=== PATIENT | male | born 1950 | race Hispanic/Latino ===

== ENCOUNTER 2021-08-02 09:04 | Inpatient (IN) | payer BC, MEDICARE ==
[~2021-08-02] VITALS: Ht 177.8 cm; Wt 89.0 kg
[2021-08-02] MEDS ORDERED: COSOPT EYE DROP10 ML OU (09:30)
[2021-08-02] MEDS ORDERED: LEVOTHYROXINE100 MCG PO (09:31)
[2021-08-02] MEDS ORDERED: LISINOPRIL-HCT1 EAC2 PO (09:31)
[2021-08-02] MEDS ORDERED: FEROSUL325 MG PO (09:32)
[2021-08-02] MEDS ORDERED: PRAVASTATIN SOD80 MG PO (09:32)
--- NOTE | 2021-08-02 15:00 | NUR ---
PT ARRIVED FROM ER. PT TRANSFERES SELF FROM ER STRETCHER TO RESTROOM TO VOID AND THEN TO BED. PT VOIDS 300ML CLEAR YELLOW URINE WITH OUT ISSUE. VITAL SIGNS STABLE. PT REPORTS 3-5/10 PAIN IN RIGHT ABDOMEN THAT IS WORSE WITH MOVEMENT OR PALPATION. PAIN IMPROVES WITH PT LYING ON RIGHT SIDE. SEE MAR FOR MEDICAITON GIVEN. ABDOMEN GUARDED, PT DOES NOT WANT ABDOMEN TOUCHED EVEN BY STETHESCOPE. PT OFFERED PROFESSIONAL TRANSATION SERVICES, PT DECLINES REQUESTING HIS DAUGHTER TRANSLATE OVER SERVICES. PT UNDERSTANDS MOST QUESTIONS AND ANSWERS ON HIS OWN. BOWEL TONES HEARD IN LEFT ABDOMEN, HYPO ACTIVE IN RIGHT ABDOMEN. HEAR TONES REGULAR, LUNG SOUNDS CLEAR. PT EDUCATION DONE REGARDING PLAN OF CARE AND NPO STATUS. PT VERBALIZES UNDERSTANDING AND STATES HIS QUESTIONS HAVE BEEN ANSWERED. PT TALKING WITH FAMILY ON PHONE. NO ADDITIONAL REQUESTS OR COMPLAINTS. PT DEMONSTRATES USE OF CALL LIGHT. BED RAILS UP. CALL LIGHT WITHIN REACH.
--- NOTE | 2021-08-02 15:50 | NUR ---
REPORT GIVEN TO GABBY ALONSO WHO IS ASSUMING CARE OF PT.
--- NOTE | 2021-08-02 16:00 | NUR ---
Pt resting safely in bed w/ call light in reach, pt denies any pain, nausea, or SOB. Pt asked for water pt educated on NPO status.
--- NOTE | 2021-08-02 18:15 | NUR ---
Pt resting safely in bed w/ call light in reach, denies any pain, nausea, or needs at this time
--- NOTE | 2021-08-02 18:15 | NUR ---
PATIENT IN BED RESTING AT THIS TIME. VITALS AND I&O'S CHARTED. BLOOD PRESSURE LOW, RN GAVIN NOTIFIED. CALL LIGHT IN REACH. NO FURTHER NEEDS AT THIS TIME,
--- NOTE | 2021-08-02 20:03 | NUR ---
RECEIVED REPORT FROM DAY SHIFT RN. PATIENT DENIES ANY NEEDS. CALL LIGHT IN REACH.
--- NOTE | 2021-08-02 21:20 | NUR ---
PATIENT ASSESMENT COMPLETED. PATIENT ONLY REPORTS PAIN WITH MOVEMENT. PATIENT DENIES THE NEED FOR PAIN MEDICAITON. PATIENT DENIES ANY NAUSEA. PATIENTS IV INFUSING PER ORDER. SCHEDULED MEDICATION GIVEN PER ORDER. VITALS TAKEN AND RECORDED. URINAL EMPTEID AND INTKAE AND OUTPUT RECORDED. NO NEEDS NOTED. UPDATED DAUGHTER ON PLAN OF CARE. ALL QUESTIONS ANSWERED. CALL LIGHT IN REACH.
--- NOTE | 2021-08-03 00:24 | NUR ---
PATIENT IS RESTING IN BED. URINAL EMPTIED. IV INFUSING PER ORDER. PATIENT DENIES ANY PAIN OR NAUSEA. PATIENTS CALL LIGHT IN REACH.
--- NOTE | 2021-08-03 02:45 | NUR ---
PATIENTS VITALS TAKEN AND RECORDED. INTAKE AND OUTPUT RECORDED. BS CHECK PER ORDER AND IS WNL. PATIENT REPORTS PAIN ONLY WITH MOVEMENT. PATIENT DENIES THE NEED FOR PAIN MEDICAITON AT THIS TIME. PATIENT DENIES ANY NAUSEA. PATIENT DENIES ANY FURTHER NEEDS. CALL LIGHT IN REACH.
--- NOTE | 2021-08-03 04:43 | NUR ---
PATIENT IS RESTING IN BED WITH MY EYES CLSOED, RR 17. CALL LIGHT IN REACH.
--- NOTE | 2021-08-03 05:51 | NUR ---
PATIENTS VITALS TAKEN AND RECORDED. URINAL EMPTIED. INTAKE AND OUTPUT RECORDED. PATIENTS BLOOD DRAWN AND SENT TO LAB. PATIENTS IV INFUSING PER ORDER. PATIENT FRED ANY NAUSEA. PATIENT REPORTS PAIN IN HIS ABD ONLY WITH MOVEMENT. PATIENT DENIES THE NEED FOR PAIN MEDICATION AT THIS TIME. NO FURTHER NEEDS NOTED. CALL LIGHT IN REACH.
--- NOTE | 2021-08-03 06:32 | NUR ---
NEW IV PLACED FOR pt COMFORT HIS AC IV BEEPS OFTEN. ZOSYN INFUSING PER ORDERS. NO REQUESTS AT THIS TIME. PRIMARY RN UPDATED
--- NOTE | 2021-08-03 07:21 | NUR ---
Shift report received from GABBY Rivas, pt resting in bed w/ call light in reach and eyes closed, RR even and unlabored on RA. IV fluids infusing per provider order
--- NOTE | 2021-08-03 09:30 | NUR ---
Pt resting in bed safely w/ call light in reach. Morning assesment complete, scheduled meds given, and IV fluids hung and infusing per provider order. Pt denies any pain, nausea, or needs at this time
[2021-08-03] MEDS ORDERED: TRAVOPROST2.5 ML OU (09:46)
[2021-08-03] MEDS ORDERED: METFORMIN HCL1000 MG PO (09:47)
--- NOTE | 2021-08-03 11:00 | NUR ---
Spoke with pt and daughter Mecca. Pt lives with his in a double wide trailer. 3 steps into home. Pt does not use any DME. is Catie Grissom. Mom will be able to assist pt as needed with driving to appts and household tasks. They deny financial issues. He states they do not qualify for assist from [employer]. They both agree at this pt does not have needs. Many questions answered about pts colonoscopy. They are also wanting to know if pt has to have a colectomy if he will have a colostomy bag. We did discuss if he has any needs, I will assist them with any supplies. We then discussed to wait and see what the colonoscopy shows and to discuss this with Dr. Calix. Of course, pt and daughter have many fears at this time. Encouraged them to discuss with Dr Garay or Dr. Calix.
--- NOTE | 2021-08-03 12:00 | NUR ---
Pt resting in bed safely w/ call light in reach pt denies any pain, nausea, or needs at this time. IV fluids infusing per provider order
--- NOTE | 2021-08-03 14:00 | NUR ---
Pt resting in bed w/ call light in reach. IV abx hung and infusing per provider order, running concurrently w/ IV fluids. Pt denies at pain, nausea or needs at this time
--- NOTE | 2021-08-03 14:20 | NUR ---
MED REC COMPLETE
--- NOTE | 2021-08-03 15:14 | NUR ---
PATIENT IN BED RESTING, DAUGHTER AT BEDSIDE. VITALS DONE BY [employer], I&O'S CHARTED BY THIS WEIGHT LOSS CONSULTANT. CALL LIGHT IN REACH. NO FURTHER NEEDS AT THIS TIME.
--- NOTE | 2021-08-03 16:00 | NUR ---
Pt resting in bed w/ call light in reach, pt reports he had a large loose BM, pt also has finished 1st bottle of bowel prep 2nd bottle given to pt. Pt denies any further needs at this time. Pt reports minimal pain in RUQ, but denies the need for pain medication.
--- NOTE | 2021-08-03 17:38 | NUR ---
PATIENT IN BED RESTING WITH EYES CLOSED. VITALS AND I&O'S CHARTED. CALL LIGHT IN REACH. NO FURTHER NEEDS AT THIS TIME,.
--- NOTE | 2021-08-03 19:54 | NUR ---
RECEIVED REPORT FROM DAY SHIFT RN. PATIENT IS RESTING IN BED WATCHING TV. NO NEEDS NOTED. CALL LIGHT IN REACH.
--- NOTE | 2021-08-03 20:19 | NUR ---
PATIENT IS RESTING IN BED. VITALS TAKEN AND RECORDED. INTAKE AND OUTPUT RECORDED. PATIENT HAD LOOSE BM, BROWN WITH SEDIMENT NOTED. FRESH ICE WATER PROVIDED. SCHEDULED MEDICATIONS GIVEN PER ORDER. PATIENT DENIES ANY PAIN OR NAUSEA. CALL LIGHT IN REACH. IV INFUSING PER ORDER.
--- NOTE | 2021-08-03 23:00 | NUR ---
WENT INTO THE ROOM. FLUSHED TOILET WITH BOWEL PREP AND URINE 400ML. PATIENT DENIES ANY NEEDS AT THIS TIME.
--- NOTE | 2021-08-04 00:31 | NUR ---
PATIENT VOIDED AND HAD BM. BM IS LIQUID, LIGHT BROWN AND SEDIMENT NOTED. CALL LIGHT IN REACH.
--- NOTE | 2021-08-04 02:32 | NUR ---
BS CHECKED PER ORDER AND IS WNL. PATIENT DENIES ANY NEEDS. CALL LIGHT IN REACH. PATIENT DENIES ANY PAIN.
--- NOTE | 2021-08-04 05:29 | NUR ---
PATIENTS VITALS TAKEN AND RECORDED. INTAKE AND OUTPUT RECORDED. PATIENTS SCHEDULED MEDICATON GIVEN PER ORDER. IV INFUSING PER ORDER. PATIENT REMAINS NPO AT THIS TIME. NO NEEDS NOTED. CALL LIGHT IN REACH.
--- NOTE | 2021-08-04 07:33 | NUR ---
Shift report received from GABBY Rivas, pt resting safely in w/ call light in reach and eyes closed, RR even and unlabored on RA.
--- NOTE | 2021-08-04 10:00 | NUR ---
Pt resting safely in bed w/ call light in reach. Morning assesment complete, scheduled meds given, and IV fluids hung and infusing per provider order. Pt denies and pain, nausea, or needs at this time. in room to discuss plan of care, surgical consent signed for EGD/colonoscopy, all questions and concerns answered, pt's daughter at beside.
--- NOTE | 2021-08-04 11:00 | NUR ---
Surgery crew here for pt, LR w/ straight tubing and extension hung, pre procedure checklist and anesthisa summary completed.
--- NOTE | 2021-08-04 11:48 | CONS ---
[facility] [address], [place] [address] Signed DATE OF CONSULTATION: 08/04/2021 CHIEF COMPLAINT: Right-sided abdominal pain. HISTORY OF PRESENT ILLNESS: Molina is a 71-year-old gentleman who worked for many years here in [facility] [employer] [facility]. He is now retired. Over the last three months, he has been having increasing pain in the right side of his abdomen. He tried metformin and was having diarrhea. When he stopped the metformin, the diarrhea seemed to improve. He was also found to be anemic with a hemoglobin below 10. He is apparently scheduled for an outpatient colonoscopy in August of this year. In the meantime, he has been on iron tablets. However, the pain in the last month seemed to getting worse, but certainly the last day or two it was worse. He came to our local emergency room for evaluation. He was evaluated in the emergency room and once again found to be anemic with a large mass and/or inflammatory process in his right proximal to mid colon. He has been admitted to Dr. Garay with consult to the medical service. Dr. Garay is now out of town and therefore asked me to take over the care. In the meantime, Molina feels a little better with IV fluids and his Zosyn. He did tolerate the bowel prep yesterday and therefore is awaiting his upper and lower endoscopy. His daughter has been at the bedside. PAST MEDICAL HISTORY: Hypertension, diabetes, hyperlipidemia, and hypothyroidism. PAST SURGICAL HISTORY: Includes a laparoscopic right inguinal hernia and bilateral knee replacements. SOCIAL HISTORY: He is to Catie at [phone]. They have three children and he also has four stepchildren. His daughter is Mecca at [phone]. He sees Madelin Helm at the [facility]. He is retired from [employer]. He still drives. He is a full code. We did not review his smoking and alcohol history. FAMILY HISTORY: There is no colon cancer or inflammatory bowel disease in the family. REVIEW OF SYSTEMS: He had 10 systems reviewed and is awaiting his colonoscopy in August of this year. ALLERGIES: Metformin may have caused diarrhea. MEDICATIONS: Electronically Signed By: NA TELLO MD 08/04/21 1148 PATIENT NAME: MOLINA CEE CONSULTATION DATE OF : 54 REPORT #: [id number] PHYSICIAN: NA TELLO MD PCP: MADELIN HELM REPORT IS CONFIDENTIAL AND NOT TO BE RELEASED WITHOUT AUTHORIZATION [facility] [address], [place] [address] Signed Dorzolamide/timolol eyedrops. Also, lisinopril/hydrochlorothiazide/levothyroxine 100 mcg p.o. daily, pravastatin, and iron. PHYSICAL EXAMINATION: VITAL SIGNS: His blood pressure is 103/58, heart rate is 62, respiratory rate is 17, temperature is 98.0. He is 98% on room air. He is 5 feet 10 inches, 89 kg. GENERAL: Molina is a 71-year-old gentleman, who is lying supine in his hospital bed. His daughter, Mecca is in the room along with our nurse. He does not appear systemically ill or toxic. He is alert, awake, and interactive. LUNGS: Clear to auscultation bilaterally. HEART: Actually bradycardic. ABDOMEN: Soft and flat. I do feel a sense of fullness in his right mid quadrant. Very minimal tenderness. LABORATORY DATA: His white blood count was initially 17.5, it is down to 9.6. His hemoglobin was 9.7, it is down to 8.6. His mean cell volume was 68, it is now 67. His platelet count was a little up at 425, it is down to 321. His sodium was 132, the BUN was 16, creatinine 0.85, glucose 153. His liver function test had been negative. His albumin was a little low at 2.4. His COVID was positive, although, he has no symptoms and of course the CEA level is pending. His prealbumin is slightly low at 12.1. RADIOGRAPHIC STUDIES: The CT scan of abdomen, pelvis and his chest is reviewed. The chest is essentially unremarkable. In the proximal to mid right colon, he has a thickened inflamed mass with a loop of small bowel over that area. He has sigmoid diverticulosis without inflammatory changes. The appendix appears unremarkable. ASSESSMENT AND PLAN: Molina is a 71-year-old gentleman, who presents with a right inflamed colonic mass. Overall, he is better with IV fluids and his antibiotics. He has been able to tolerate his bowel prep. He has certainly been anemic for a while. I suspect it is from this mass in the colon. Nevertheless, his daughter had asked me about the upper endoscopy in addition to the colonoscopy. That certainly is reasonable as he could have peptic ulcer disease or gastritis and so forth. He certainly could have two separate processes going on related to anemia. I have reviewed upper and lower endoscopy with them in detail. They understand there is risk including, but not limited to gas bloating, crampy abdominal pain, bleeding, perforation requiring surgery, and missed diagnosis. Also given his current situation and his anemia, we thought it was best to have an anesthesia provider help us with increased monitoring and sedation with propofol. In the end, he is going to need a right colectomy and that surgery is going to take several hours. We will see if we can get that done in the days ahead. They have expressed understanding and agreed with the above plan. Electronically Signed By: NA TELLO MD 08/04/21 1148 PATIENT NAME: MOLINA CEE CONSULTATION DATE OF : 54 REPORT #: [id number] PHYSICIAN: NA TELLO MD PCP: MADELIN HELM REPORT IS CONFIDENTIAL AND NOT TO BE RELEASED WITHOUT AUTHORIZATION [address] [address] Signed Na Tello MD ALB/MODL /[id number] cc: Dr. Madelin Tello MD Copies: NA TELLO MD ~ Electronically Signed By: NA TELLO MD 08/04/21 1148 PATIENT NAME: MOLINA CEE CONSULTATION DATE OF : 54 REPORT #: [id number] PHYSICIAN: NA TELLO MD PCP: MADELIN HELM REPORT IS CONFIDENTIAL AND NOT TO BE RELEASED WITHOUT AUTHORIZATION
--- NOTE | 2021-08-04 11:50 | NUR ---
No needs. States he is hungry.
--- NOTE | 2021-08-04 11:51 | NUR ---
08/04/21 1151 Mary Beth Sheikh 1143-PATIENT ARRIVED TO RECOVERY NONAROUSABLE LAYING LEFT LATERAL ABDOMEN SOFT. IVF INFUSING. 4L NC RR EVEN. SB HR 50'S
--- NOTE | 2021-08-04 12:28 | NUR ---
PT RETURNS FROM UPPER AND LOWER SCOPES, PT ABLE TO TRANSFER SELF FROM STRETCHER TO BED, RESTING SAFELY W/ CALL LIGHT IN REACH. VSS ON RA, IV FLUIDS INFUSING PER PROVIDER ORDER. PT DENIES ANY PAIN OR NAUSEA, ONLY STATES HE IS THIRSTY, PT GIVEN GLASS OF ICE WATER HE IS ALLWOED CLEAR LIQUIDS. DAUGHTER AT BEDSIDE
--- NOTE | 2021-08-04 12:52 | OR ---
[facility] [address], [place] [address] Signed DATE OF OPERATION: 08/04/2021 SURGEON: Na Tello MD PREOPERATIVE DIAGNOSES: 1. Right colonic mass with inflammation. 2. Anemia. POSTOPERATIVE DIAGNOSES: 1. Mild diffuse gastritis. 2. Large right colonic mass, nearly obstructing. 3. 4 mm and 7 mm polyps proximal transverse colon (snare). 4. 4 mm polyp at 10 cm/rectum. 5. Minimal to moderate transverse colon and left colon diverticulosis. 6. Minimal internal hemorrhoids. PROCEDURES: 1. EGD with CLOtest and biopsy of the antrum. 2. Colonoscopy with snare polypectomy and hot biopsy. ESTIMATED BLOOD LOSS: None. INDICATIONS: Emily is a 71-year-old gentleman, who I was asked to take over his care earlier today by our local surgeon Dr. Branden Garay. Emily has trouble probably three months with right-sided abdominal pain. He was noted to be anemic. He had been to his primary care provider. He was scheduled to have an outpatient colonoscopy in August of this year. He had been put on metformin for his diabetes. He developed diarrhea. He stopped the metformin, it seemed like the diarrhea resolved. However, over the last month and particularly over the last couple of days, the right-sided abdominal pain became worse. He came to our local emergency room for evaluation. His white count was elevated and he had a palpable mass in the right side of his abdomen. Liver function tests were negative. CEA is pending. Albumin is a little low at 2.4. He is anemic with a hemoglobin of 9.7 and mean cell volume of 68. The CT scan of the chest was unremarkable. The CT scan of the abdomen and pelvis showed there is thickened inflamed mass in his proximal mid right colon. There is a loop of small bowel there as well. The appendix is uninvolved. He could have diverticulosis on the left side without any inflammatory changes. He has already had a long discussion with Dr. Garay and including myself. His daughter has been present for those discussions. We reviewed Electronically Signed By: NA TELLO MD 08/04/21 1252 PATIENT NAME: EMILY CEE OPERATIVE REPORT DATE OF : 54 REPORT #: [id number] PHYSICIAN: NA TELLO MD PCP: MADELIN HELM REPORT IS CONFIDENTIAL AND NOT TO BE RELEASED WITHOUT AUTHORIZATION [facility] [address], [place] [address] Signed both upper and lower endoscopy in detail. He has never had a previous endoscopy. There is no family history of colon cancer, polyps or inflammatory bowel disease. He understands there is risk including, but not limited to gas bloating, crampy abdominal pain, bleeding, perforation requiring surgery, and missed diagnosis. Also because of his acute situation, his anemia is , we did ask an anesthesia provider to help us with increased monitoring and sedation with propofol. They had expressed understanding and wished to proceed. PROCEDURE NOTE: Emily was taken into our endoscopy suite and placed in a supine semi-recumbent position. The adult gastroscope was introduced and advanced under direct visualization of the camera. A bite block was utilized for the case. The duodenum and pyloric channel were unremarkable. The stomach showed very minimal inflammatory changes. We took a biopsy of the antrum for pathologic review as well as CLOtest. Upon retroflexion of the scope, we really could not appreciate any additional pathology. Certainly, no obvious hiatal hernia. The scope was withdrawn up through the area of the GE junction, which was compiled without stricture. The Z-line remains intact. There was no Hong's mucosa. No gastric or esophageal varices. The distal middle and upper esophagus were unremarkable. After this, the gas was suctioned out and the gastroscope removed. Emily tolerated the procedure quite well. Emily was rotated into the left lateral decubitus position. He was maintained on IV sedation with propofol per our nurse instructional technology instructor. A digital rectal exam was performed and he had good sphincter tone. Not much really in the way of external hemorrhoids. The prostate is moderately enlarged and indurated consistent with his age. The adult colonoscope was introduced and advanced under direct visualization of the camera. We came around the hepatic flexure and down into the mid proximal right colon, he has a nearly obstructing colonic mass. We could not pass the scope past the mass. Knowing he is to undergo his right colectomy and this is an obvious tumor, we did not take any biopsies of this mass. The scope was then slowly withdrawn. He does have diverticula throughout most of his colon. They were moderate in size, few in number, and scattered about. We used the snare and the hot biopsy forceps to remove the polyps in the proximal transverse colon. In the rectum, he had a tiny polyp at 10 cm removed with the hot biopsy forceps. Upon retroflexion of the scope, he really has minimal internal hemorrhoid tissue. After this, the gas was suctioned out and colonoscope removed. Emily tolerated the procedure quite well. RECOMMENDATIONS: Emily will be returned to his hospital bed today on clear liquid diet. We will discuss this in more detail with his daughter and Emily as well. He will need a right colectomy probably tomorrow or the next day. Electronically Signed By: NA TELLO MD 08/04/21 1252 PATIENT NAME: EMILY CEE OPERATIVE REPORT DATE OF : 54 REPORT #: [id number] PHYSICIAN: NA TELLO MD PCP: MADELIN HELM REPORT IS CONFIDENTIAL AND NOT TO BE RELEASED WITHOUT AUTHORIZATION [facility] [address] [place] [id number] Signed Na Tello MD [facility]/MODL /[id number] cc: Dr. Madelin Tello MD Copies: NA TELLO MD ~ Electronically Signed By: NA TELLO MD 08/04/21 1252 PATIENT NAME: EMILY CEE OPERATIVE REPORT DATE OF : 54 REPORT #: [id number] PHYSICIAN: NA TELLO MD PCP: MADELIN HELM REPORT IS CONFIDENTIAL AND NOT TO BE RELEASED WITHOUT AUTHORIZATION
--- NOTE | 2021-08-04 14:00 | NUR ---
Pt resting in bed safely w/ call light in reach, daughter at bedside. 1st unit of PRBC started, no reaction after initial 15 min infusion. VSS on RA. Pt and daughter educated on s/sx of blood transfusion reactions. No further needs at this time, will continue to monitor transfusion.
--- NOTE | 2021-08-04 16:00 | NUR ---
Infusion of 1st unit of PRBC complete, VSS on RA, no reaction. Infusion for 2nd of PRBC started, no reaction in initial 15 min infusion, VSS on RA, pt denies any pain or needs at this time, resting safely in bed w/ call light in reach and daughter at bedside.
--- NOTE | 2021-08-04 18:00 | NUR ---
Infusion of 2nd unit of PRBC complete, VS remain stable on RA, pt denies ant pain or needs at this time. No s/sx of reaction obsereved/reported, will continue to monitor.
--- NOTE | 2021-08-04 19:25 | NUR ---
REPORT FROM GAVIN - ERNIE DENIES NEEDS.
--- NOTE | 2021-08-04 21:30 | NUR ---
IN PT ROOM, BROTH PROVIDED - DENIES PAIN, ASSESSMENT COMPLETE - VOID 500 ML URINE, IV ABX STARTED. BS TAKEN. PT CALL LIGHT IN REACH.
--- NOTE | 2021-08-04 23:16 | NUR ---
CHARTED PT. IS AND OS AND VITALS. TIDIED ROOM, EMPTIED GARBAGE. CALL LIGHT LEFT WITHIN REACH. NO OTHER IMMEDIATE NEEDS AT THIS TIME. FRESH WATER PROVIDED.
--- NOTE | 2021-08-05 01:30 | NUR ---
ENTERED PT ROOM FOR CALL LIGHT ALARM ON IV, PT REPOSITIONED TO R SIDE, NPO FOR POSSIBLE PROCEDURE. CALL LIGHT IN REACH.
--- NOTE | 2021-08-05 04:12 | NUR ---
re check of bs after low at 2 am was 111 after cup of apple juice. labs drawn by yo BUSH - sent to lab.
--- NOTE | 2021-08-05 09:57 | NUR ---
PT SALINE LOCKED. UP TO SHOWER AT THIS TIME. BED MADE UP WITH CLEAN LINENS. FAMILY AT BED SIDE.
--- NOTE | 2021-08-05 10:00 | NUR ---
Patient resting in bed, a&ox4. Patient requesting to shower, windshield repair technician to assist here shortly. Patient denies pain. Daughter at bedside visiting. No current needs. Personal supplies and call light within reach.
--- NOTE | 2021-08-05 10:12 | NUR ---
PT UP TO CHAIR WITH FAMILY MEMBER IN ROOM. NO FURTHER NEEDS AT THIS TIME.
--- NOTE | 2021-08-05 13:00 | NUR ---
Spoke with Mecca. Pt resting in bed. Hungry. She has questions if pt will have surgery today or tomorrow. Let her know, she would need to discuss with Dr. Calix.
--- NOTE | 2021-08-05 15:04 | NUR ---
Patient resting in bed, no distress. Patient denies pain. No current needs at this time. Personal supplies and call light within reach.
--- NOTE | 2021-08-05 16:44 | NUR ---
Patient awake watching tv, no distress. Patient condtinues to deny pain. Daughter remains at bedside. No current needs. Personal supplies and call light within reach.
--- NOTE | 2021-08-05 18:34 | EKG ---
[facility] [address] [facility] [place], [place] [address] Signed Sinus bradycardia Otherwise normal ECG No previous ECGs available Confirmed by ELIA ZAFAR DO ([id number]) on 08/05/2021 6:34:08 PM Electronically Signed By: ELIA ZAFAR DO 08/05/21 1834 PATIENT NAME: MEÑO CEEDELMY RIVERA Electrocardiogram DATE OF : 54 PHYSICIAN: ELIA ZAFAR DO REPORT #: [id number] REPORT IS CONFIDENTIAL AND NOT TO BE RELEASED WITHOUT AUTHORIZATION
--- NOTE | 2021-08-05 22:55 | NUR ---
PT AWAKE, ALERT, ORIENTED, NO C/O PAIN OR N/V. ON ROOM AIR, TELE#[address] LUNGS CLEAR BILAT, NO COUGH, NO SOB. IVF INFUSING RA, SL LFA PATENT. PT AWARE OF NPO STATUS AFTER MIDNIGHT, STATED UNDERSTANDING. INDEPENDENT IN ROOM. VOIDING QS. USES CALL LIGHT, ON RESPIRATORY ISOLATION
--- NOTE | 2021-08-06 | NUR ---
PT IS NOW NPO STATUS, ORAL SWABS PROVIDED AT BEDSIDE, URINAL EMPTIED
--- NOTE | 2021-08-06 00:27 | NUR ---
NPO AT THIS TIME, ORAL SPONGES GIVEN AND EXPLAINED TO PT.
--- NOTE | 2021-08-06 01:23 | NUR ---
RESTING, ON ROOM AIR, EYES CLOSED, NO C/O PAIN OR N/V. IVF INFUSING , NO C/O ADVERSE REACTION TO IV ABX. NPO, ORAL SPONGES AND CALL LIGHT AT BEDSIDE, VOIDING QS
--- NOTE | 2021-08-06 02:10 | NUR ---
Q6 GLUC CHECK (SEE EMAR), NURSE INFORMED
--- NOTE | 2021-08-06 02:36 | NUR ---
awakes easily, NPO, CG 79, oj with 2 pakets of sugar given. no s/sx hypoglycemia, pt is NPO for am procedure. uses call light, voiding QS yellow urine. IVF infusing w/o problems
--- NOTE | 2021-08-06 05:05 | NUR ---
PT ON RESPIRATORY ISOLATION PRECAUTIONS. ON ROOM AIR, CPOX#5, SATS 96%, NO SOB WHEN UP TO BR, INSP WHEEZING ON L SIDED NOTED. NPO , CBG 79 GOT OJ, NO S/SX OF HYPOGLYCEMIA, IVF INFUSING, NO ADVERSE REACTION TO ABX. HEXADINE WIPE DOWN COMPLETED. COOPERATIVE
--- NOTE | 2021-08-06 07:47 | NUR ---
Patient awake, a&ox4. Patient denies pain at this time. IV site patent, fluids infusing per provider order. Surgical consent signed with patient at this time. Patient updated with plan of care for surgery this morning. No current needs. Personal supplies and call light within reach.
--- NOTE | 2021-08-06 11:06 | NUR ---
PT IN SURGERY, WILL FOLLOW
--- NOTE | 2021-08-06 13:11 | PATH ---
[facility] [address], [place] [address] Signed THIS IS AN ADDENDUM REPORT SPECIMEN(S): A ANTRUM/PYLORUS BIOPSY SPECIMEN(S): B PROXIMAL TRANSVERSE COLON POLYP SPECIMEN(S): C RECTAL POLYP AT 10 CM SPECIMEN SOURCE: A. ANTRUM/PYLORUS BIOPSY B. PROXIMAL TRANSVERSE COLON POLYP C. RECTAL POLYP AT 10 CM CLINICAL HISTORY: Anemia, right colonic mass, colitis. Post: Colon polyp/rectal polyp, mild gastritis, diverticulitis, proximal mid right colon mass at 130 cm. FINAL PATHOLOGIC DIAGNOSIS: A. Antrum/pylorus, biopsy: - Gastric antral mucosa with chronic inactive gastritis. - Negative for Helicobacter pylori with HE stains, see comment. B. Colon, proximal transverse, polypectomy: - Fragments of necrotic tissue and inflammatory debris, see comment. C. Rectum, 10 cm, polypectomy: - Hyperplastic polyp. COMMENT: A. An immunohistochemical stain for Helicobacter pylori has been ordered and will be reported in an addendum. B. The endoscopic impression of an unbiopsied colonic mass in the mid proximal right colon is noted. The fragments of tissue in the current case may represent exfoliated necrotic tissue from this mass, though no viable tumor is present for diagnosis. BRP:cml:C2NR MICROSCOPIC EXAMINATION: Histologic sections of all submitted blocks are examined by light microscopy. These findings, together with the gross examination, support the pathologic diagnosis. GROSS DESCRIPTION: Three specimens are received in three containers, labeled "SM." A. The specimen, labeled "SM, antrum biopsy," is received in formalin and PATIENT NAME: EMILY CEE PATHOLOGY DATE OF : 54 REPORT #: [id number] PHYSICIAN: LETHA SCOTT PCP: KENDRA HELM REPORT IS CONFIDENTIAL AND NOT TO BE RELEASED WITHOUT AUTHORIZATION [facility] [address] [id number] Signed consists of one gaitan soft tissue fragment that measures 0.3 cm in greatest dimension. The specimen is entirely submitted in cassette (A1). B. The specimen, labeled "SM, proximal transverse colon polyp," is received in formalin and consists of multiple gaitan soft tissue fragments that measure 1.5 x 1.7 x 0.3 cm in aggregate. The biggest tissue fragment is inked and sectioned. The specimen is entirely submitted in cassette (B1). C. The specimen, labeled "SM, rectal polyp at 10 cm," is received in formalin and consists of two gaitan soft tissue fragments that measure 0.1 cm in greatest dimension. The specimen is entirely submitted in cassette (C1). JS (under the direct supervision of a pathologist) The Gross Description was prepared using a voice recognition system. The report was reviewed for accuracy; however, sound-alike word errors, addition and/or deletions may occur. If there is any question about this report, please contact Client Services. PERFORMING LABORATORY: The technical component was performed by [facility] [address] (Prosthetic Assistant: Manuela Sol MD; CLIA# [id number]).[facility], [address] [address] (CLIA# [id number]). ADDITIONAL NOTES: Immunohistochemical and/or in situ hybridization studies were performed on this case with the appropriate positive controls that react as expected. This test was developed and its performance characteristics determined by [facility]. It has not been cleared or approved by the U.S. Food and Drug Administration. The FDA has determined that such clearance or approval is not necessary. This test is used for clinical purposes. It should not be regarded as investigational or for research. [facility] is certified under the Clinical Laboratory Improvement Amendments of 1988 (CLIA) as qualified to perform high complexity clinical laboratory testing. This assay has not been validated for specimens that have been decalcified. The technical component was performed by [facility], [address] [place] [address] (Prosthetic Assistant: Manuela Sol MD; CLIA# [id number]). PATIENT NAME: EMILY CEE MIGUEL PATHOLOGY DATE OF : 54 REPORT #: [id number] PHYSICIAN: LETHA SCOTT PCP: KENDRA HELM REPORT IS CONFIDENTIAL AND NOT TO BE RELEASED WITHOUT AUTHORIZATION [facility] [address] [facility] [place], [place] [address] Signed Professional interpretation was performed by [facility], [address] [facility] [address] [place], [place] [address] (CLIA# [id number]). REASON FOR ADDENDUM: To add results of additional testing. ADDENDUM PATHOLOGIC DIAGNOSIS: A. Antrum/pylorus, biopsy: - An immunohistochemical stain for Helicobacter pylori is performed and is negative. The above interpretation is unchanged. BRP:cml Diagnostician: Jimbo Cash MD Pathologist Electronically Signed 08/06/2021 Copies: ~ PATIENT NAME: EMILY CEE MIGUEL PATHOLOGY DATE OF : 54 REPORT #: [id number] PHYSICIAN: LETHA PATHOLOGY PCP: KENDRA HELM REPORT IS CONFIDENTIAL AND NOT TO BE RELEASED WITHOUT AUTHORIZATION
--- NOTE | 2021-08-06 13:21 | NUR ---
08/06/21 [address]- PT ARRIVES TO ROOM #10 FOR RECOVERY. PT EASILY REACTIVE TO VOICE. PT REPORTS HE HAS TO "PEE". PT UPDATED THAT HE HAS A CATHETER. RESP EVEN AND UNLABORED. OXYGEN SAT HIGH 90'S TO 100% ON 6L VIA MASK.
--- NOTE | 2021-08-06 13:39 | NUR ---
OVER TO ROOM TO CHECK ON PATIENT. PATIENT REMAINS IN OR, WILL F/U WHEN HE RETURNS.
--- NOTE | 2021-08-06 14:55 | NUR ---
Patient to the medical floor from surgery. Patient alert and oriented x4, no acute distress. Patient reports his pain is tolerable, 4/10 abd/back pain. Vital signs stable, afebrile. IV fluids restarted per provider order. Midline abd incision covered, CDI dressing. Estelita to RUQ is intact and patent, scant amount of sarosang drainage noted. Gauze dressing over estelita site; CDI. Patient is on 1L oxygen per nc, respirations even and non labored. Patient has call light. Fresh water provided to patient. No current needs.
--- NOTE | 2021-08-06 15:29 | NUR ---
Dilaudid 1mg IVP admin at this time for reports of 8/10 back/abd pain.
--- NOTE | 2021-08-06 17:03 | NUR ---
Patient resting in bed, no distress. Patient's vital signs stable, afebrile. Patient's pain is tolerable. Abdominal dressing is CDI. JANES intact to RUQ, scant sarosang drainage in bulb. Patient has no needs. Personal supplies and call light within reach.
--- NOTE | 2021-08-06 17:51 | NUR ---
Admin dilaudid 1mg ivp for reports of 8/10 abd pain.
--- NOTE | 2021-08-06 20:22 | NUR ---
in to assist rn with pt vs, getting up to ambulate a few steps from the bed, vizcarra cath emptied and charted, ice pack and fresh ice water for pt, pt's provided linens and ice water, rn in room, no further needs
--- NOTE | 2021-08-06 20:58 | NUR ---
PT AWAKE, IVF INFUSING, MIDLINE ABD DRESSINGIN PLACE, SOFT, TENDER TO TOUCH, NANCY, DENIES PASSING GAS JANES W SS DRAINAGE. EMPTYING/CARE TEACHING DONE W AND PT IN [place]. STATED UNDERSTANDING, STATED TO MAKE SURE DAUGHTER GETS TRAINED TOO. WAS MEDICATED WITH DILAUDID 1.5MG IV PRIOR TO GETTING HIM UP. UP TO EDGE OF BED AND WALKED TO COUCH AND BACK. 2PA, TOLERATED WELL, NO EMESIS, F/C NOT CHRONIC POST OP. SCDS IN PLACE, CPOX#[address] SATS 96%, PULSE BRADYCHARDIC AT 45-49BPM. O2 2LNC PLACED ON ON RETURN TO BED, POST OP AND MEDS, PT HAS TACOS. DENIES CP. HELPED W REPOSITIONING, USES CALL LIGHT, TOLERATING LIQUIDS WELL, NO EMESIS. IN ROOM. PT ON RESPIRATORY ISOLATION PRECAUTIONS
--- NOTE | 2021-08-06 23:01 | NUR ---
AWAKES EASILY, NO FURTHER C/O PAIN OR DISCOMFORT, TOOK O2 OFF. CPOX#5 SATS 97% p48, ROOM AIR. ivf INFUSING. CALL LIGHT AT HANDS REACH
--- NOTE | 2021-08-07 00:07 | OR ---
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 PROCEDURES: Right colectomy with end-to-side ileocolonic anastomosis, hand-sewn in 2 layers (prolonged and difficult at 3 hours). ESTIMATED BLOOD LOSS: 200 mL. FINDINGS: Emily had a large tumor in his proximal right colon. The terminal ileum was attached to it about 15 cm from the ileocecal valve. We went beyond that area another 10 cm in order to divide the small bowel, so that the entire specimen could be taken out en bloc. Also the tumor had to be very carefully and meticulously dissected from the retroperitoneum and rotated into the midline. In addition, he has a very short mesentery of the transverse colon, and that took very careful dissection as well. In all, it took an additional hour to perform his right colectomy over usual. In this regard, his procedure was prolonged and difficult. INDICATIONS: Emily is a 71-year-old gentleman, who had been having right-sided abdominal pain for at least 3 months, if not longer. He eventually came to our local emergency room for evaluation. He had been to his primary care provider, and was found to be anemic. He was planning to have his 1st colonoscopy in August of this year. He had been admitted to our local surgeon, Dr. Branden Garay. I had taken over his care on 08/04/2021. He was able to tolerate his bowel prep. We therefore were able to pass the colonoscope up to the tumor in his proximal right colon. However, we could not pass the scope beyond the tumor into the cecum itself. He had a few small polyps, which we removed as well. He also has [id number] left-sided diverticulosis and internal hemorrhoids. I had reviewed all this with Emily and his 3 children in great detail. I brought them a brochure on colorectal polyps and cancer. We reviewed it page by page. I had circled the sections relevant to them. I explained to them concept of a right Electronically Signed By: NA TELLO MD 08/07/21 0007 PATIENT NAME: EMILY CEE OPERATIVE REPORT DATE OF : 54 REPORT #: [id number] PHYSICIAN: NA TELLO MD PCP: MADELIN HELM REPORT IS CONFIDENTIAL AND NOT TO BE RELEASED WITHOUT AUTHORIZATION [facility] [address], [place] [address] Signed colectomy through a midline incision. We had reviewed the expected intraop and postop course. We reviewed the risks including, but not limited to bleeding, infection, scarring, change in contour of the skin, damage to bowel, anastomotic leak, incisional hernias, and other unforeseen comorbidities. They were aware of the concept of chemotherapy as well. They had expressed understanding and wished to proceed. PROCEDURE NOTE: Emily was taken into the operating room and placed in the supine position under general endotracheal tube anesthesia. Prior to this, he was given bilateral abdominal wall blocks by our nurse drafter automotive design. He was given preoperative antibiotics along with subcutaneous Lovenox. SCDs were utilized. A Medina catheter was inserted without difficulty with return of clear yellow urine. One could easily palpate the tumor in his right mid to right lower quadrant. After this, he was prepped and draped in the usual sterile fashion. A standard periumbilical incision was made with the help of the 15 blade knife in the cautery. The abdomen was entered without difficulty with the help of the cautery. Once the incision was developed, the Bookwalter retractor was placed. One can easily see and feel the tumor. We have to very carefully and meticulously work our way down the white line of Toldt towards the tumor and then back up around the hepatic flexure towards the midline of the abdomen. We found that he had a very shortened transverse mesocolon at his baseline. It took a few minutes to separate the stomach from the transverse mesocolon, so that we could access this very shortened mesocolon. We also were able to free up his cecum as well and down towards the base of the terminal ileum. We could see that the terminal ileum was attached to this tumor about 15 cm proximal to the ileocecal valve. We therefore divided our terminal ilium about 10 cm proximal to where it was attached to the tumor. We have to very slowly and meticulously dissect out the tumor from the retroperitoneum and rotate towards the midline. It took extra time in this regard. We did not see any evidence of metastatic disease to the liver or the peritoneal surfaces. However, we could palpate lymph nodes in the mesentery. We had divided the transverse colon near the midline with the help of the linear stapler, as we had the terminal ileum. The mesocolon was taken down very carefully between Pean clamps and 0 Vicryl ties. Several 0 Vicryl stick ties were used as well to secure various bleeders. We took this down right over top of his pancreas and duodenum very carefully, as we went inferiorly towards the tumor itself. Eventually, the entire specimen had been removed en bloc. The specimen was opened on the back table by our circulating nurse and pictures were taken for photodocumentation. We brought the terminal ileum over to our mid transverse colon. Because of his very shortened transverse mesocolon, we decided to perform an end-to-side ileorectal anastomosis in 2 layers, hand-sewn with Vicryl and silk sutures. This allowed the ileum to lie in its best position. We closed our mesenteric rent with a running 0 Vicryl suture. After this, the entire area was irrigated and suctioned out until clear. All of our lap counts were correct. We returned the bowel to the abdomen and removed the Bookwalter retractor. It was lying in good position without any tension whatsoever. We Electronically Signed By: NA TELLO MD 08/07/21 0007 PATIENT NAME: EMILY CEE OPERATIVE REPORT DATE OF : 54 REPORT #: [id number] PHYSICIAN: NA TELLO MD PCP: MADELIN HELM REPORT IS CONFIDENTIAL AND NOT TO BE RELEASED WITHOUT AUTHORIZATION [facility] [address], [place] [address] [address] our thumb and index finger across anastomosis and it was palpably patent. It appeared to be pink and quite healthy. His gallbladder was uninvolved and quite healthy. After this, we placed a #10 flat Benigno drain along the area of the pancreas and just inferior to the duodenum, then out the right side of the abdominal wall. It was held in place with an interrupted 2-0 nylon suture. The abdomen was irrigated and suctioned out until clear. We then closed the midline fascia with interrupted #1 [id number] PDS sutures. The wound was irrigated and suctioned out until clear. We then closed the dermis with interrupted 3-0 subcuticular Monocryl sutures. Sonya were then used to reapproximate the skin. A Medina catheter was left in place. After this, Emily was awakened from his anesthesia, extubated in the OR, and taken to recovery room in stable condition. Na Tello MD ALB/MODL /[id number] cc: Madelin Helm, Nurse Practitioner [facility] Na Tello MD Copies: NA TELLO MD ~ Electronically Signed By: NA TELLO MD 08/07/21 0007 PATIENT NAME: EMILY CEE OPERATIVE REPORT DATE OF : 54 REPORT #: [id number] PHYSICIAN: NA TELLO MD PCP: MADELIN HELM REPORT IS CONFIDENTIAL AND NOT TO BE RELEASED WITHOUT AUTHORIZATION
--- NOTE | 2021-08-07 02:40 | NUR ---
PT AWAKE, NO C/O PAIN. ON ROOM AIR, NON PRODUCTIVE COUGH PRESENT, HAS BEEN USING IS OFF AND ON. MIDLINE BAD DRESSING CDI. NANCY, DENIES PASSING GAS. R JANES W SMALL AMOUNT OF SS DRAINAGE. F/C PATENT WITH SMALL AMOUNT OF DARK YELLOW URINE. TOLERATING FLUIDS, WELL AWARE OF FLUID RESTRICTION. REPOSITIONED SELF.IVF INFUSING W/O PROBLEMS. USES CALL LIGHT. CONT ON RESP ISOLATION PRECAUTIONS
--- NOTE | 2021-08-07 03:35 | NUR ---
pt c/o abd pain, 03/05 medicated with dilaudid 1mg iv. repositioned. cpox#5 88-91% room air. f/c patent.
--- NOTE | 2021-08-07 06:10 | NUR ---
Pt on room air, cpox #5 88-94%. no sob with exertion. Was medicated x2 per abdpain. Mid abd dressing CDI, R low abd JANES with ss drainage. Janes care teaching done. abd soft, tender to touch and adrianna bowel tones, denies passing gas. f/c not chronic patent, drainig small amount of dark yellow urine. tolerating clear diabetic fluids w 1000cc fluid restriction. pt aware of fluids restriction, no emesis. Uses call light. all procedures explained to pt and in Welsh. stated understanding. Pt walked earlier in room, tolerated well. SCDS in place. pt home eye qtts at bedside
--- NOTE | 2021-08-07 08:10 | NUR ---
Dilaudid 1mg IVP admin for reports of 6/10 abdominal pain. Patient alert and oriented x4, sitting up in bed visiting with his . Broth provided to patient. Abd dressing is CDI. JANES to RUQ is intact and patent to RUQ. Encouraged patient to call for needs.
--- NOTE | 2021-08-07 10:53 | NUR ---
Admin dilaudid 1mg ivp for reports of 6/10 abd pain. Patient requesting to shower in a little while. New bag of IV fluids started per provider order. Dr. Calix removed dressing to abdomen this morning. Midline incision now open to room air, well approx with anjel, no drainage noted. Patient tolerating clear liquids well.
--- NOTE | 2021-08-07 11:45 | NUR ---
Medina catheter removed per provider order. 9ml sterile water removed from balloon prior to removal. Catheter tip intact. Patient tolerated well. Pt due to void. Patient requesting to shower this afternoon.
--- NOTE | 2021-08-07 14:48 | NUR ---
REPORT RECEIVED FROM RN AND PT. CARE RESUMED. PT. IS ALERT AND ORIENTED TO ALL. DAUGHTER AND PRESENT IN THE ROOM AND HELP WITH TRANSLATION AT TIMES. PT. ASSISTED BY ONE STAFF WITH AMBULATING TO THE BATHROOM TO VOID. TOLERATED WELL. PT. REPORTS SHARP PAIN IN RUQ AT TIMES WITH DEEP BREATHING. REFUSES PAIN MEDS AT THIS TIME. MIDLINE INCISION IS CDI WITH MYA INTACT AND OPEN TO AIR. JANES DRAIN IS PATENT AND DRAINING SEROSANGUINOUS FLUID. DISCUSSED POC, SHOWERING, AMBULATING. LEFT RESTING WITH CALL LIGHT IN REACH.
--- NOTE | 2021-08-07 16:11 | NUR ---
HELPED PATIENT IN THE BATHROOM TO TAKE A SHOWER. HIS CAME AND HELPED HIM. CHANGED BED LINENS. DID BLOOD SUGAR CHECK.
--- NOTE | 2021-08-07 19:15 | NUR ---
REPORT RECEIVED FROM DAY SHIFT RN. PT LYING IN BED ALERT AND ORIENTED. FAMILY IN ROOM. NO NEEDS AT THIS TIME. CALL LIGHT IN REACH.
--- NOTE | 2021-08-07 20:15 | NUR ---
EVENING ASSESSMENT COMPLETE. SCHEDULED MEDS ADMINSITERED PER EMAR. PRN FOR PAIN GIVEN FOR 03/05 ABD PAIN. BOWEL TONES HYPOACTIVE. PT DENIES FLATUS. DENIES NAUSEA. ABD SOFT AND NON DISTENDED. MIDLINE INCISION WITH MYA INTACT. NO REDNESS OR DRAINGE NOTED. JANES WITH 25ML YELLOWISH SEROSANG DRAINAGE. IVF INFUSING WNL. SCD'S IN PLACE. FAMILY IN ROOM. PT DENIES FURTHER NEEDS. CALL LIGHT IN REACH.
--- NOTE | 2021-08-07 21:22 | NUR ---
call light on, pt needs urinal emptied, iv pump alarming, rn informed
--- NOTE | 2021-08-07 21:30 | NUR ---
IV PUMP ALARMING. ISSUE RESOLVED. URINAL EMPTIED. PT DENIES NEEDS. BED ALARM FOR SAFETY.
--- NOTE | 2021-08-08 00:10 | NUR ---
IN TO ASSIST PT TO EMPTY URINAL, PT SAYS HIS JANES IS FULL, WANTS TO ASK RN FOR PAIN MEDS
--- NOTE | 2021-08-08 00:44 | NUR ---
PT REPORTS ABD/BACK PAIN 03/05. PRN FOR PAIN ADMINISTERED PER EMAR. 1PA TO STAND AND AMB AT BEDSIDE TO RELIEVE BACK DISCOMFORT. BACK TO BED, CLAIRE WELL. URINAL EMPTIED. NO FURTHER NEEDS AT THIS TIME. CALL LIGHT IN REACH.
--- NOTE | 2021-08-08 02:10 | NUR ---
IN TO CHECK PTs GLUCOSE, (SEE EMAR), NO FURTHER NEEDS
--- NOTE | 2021-08-08 03:30 | NUR ---
PT RESTING IN BED WITH EYES CLOSED. RESPIRATIONS EVEN. CALL LIGHT IN REACH.
--- NOTE | 2021-08-08 04:01 | NUR ---
CALL LIGHT ANSWERED. IV PUMP ALARMING. RESOLVED. PT RESTING ON LEFT SIDE. DENIES NEEDS. URINAL EMPTIED OF 700 ML CLEAR YELLOW URINE.
--- NOTE | 2021-08-08 06:00 | NUR ---
VS AND I&O COMPLETE. PT REPORTS ABD PAIN 12/03. PRN FOR PAIN ADMINISTERED PER EMAR. 1PA TO STAND AT BEDSIDE AND AMB IN ROOM. BACK TO BED, CLAIRE WELL. PT DENIES NAUSEA. DENIES FLATUS BUT DOES REPORT FREQUENT BURPING. BROTH PROVIDED. IVF INFUSING. SCD'S IN PLACE. PT DENIES NEEDS. CALL LIGHT IN REACH.
--- NOTE | 2021-08-08 07:45 | NUR ---
REPORT RECEIVED FROM NIGHT RN AND PT. CARE RESUMED. PT. IS ALERT AND ORIENTED TO ALL. HE REPORTS ACHING ABDOMINAL PAIN BUT REFUSES PAIN MEDS AT THIS TIME. MIDLINE INCISION SITE IS DRY AND MAY INTACT. ABDOMEN IS SOFT AND BOWEL TONES HYPOACTIVE THROUGHOUT. IV SITE WNL AND FLUSHES WELL. LUNGS CLEAR THROUGHOUT AND ON ROOM AIR. JANES DRAIN STRIPPED AND EMPTIED OF 100ML OF SEROSANGUINOUS FLUID. DISCUSSED POC, MEDS AND AMBULATION. PT. AMBULATED WITH SBA TO THE CHAIR AND TOLERATED WELL. LEFT RESTING WITH CALL LIGHT IN REACH.
--- NOTE | 2021-08-08 10:15 | NUR ---
PT. USES CALL LIGHT APPROPRIATELY TO REQUEST PAIN MED. ADMIN. 1 MG OF DILAUDID FOR 7/10 ACHING ABDOMINAL PAIN. PT. URINAL EMPTIED. LEFT RESTING WITH CALL LIGHT IN REACH.
--- NOTE | 2021-08-08 13:08 | NUR ---
PATIENT UP TO BATHROOM TO VOID. TOTAL URINE EMPTIED FOR 800ML. PATIENT BACK TO BED, SCD'S ARE ON. 1MG OF IV DILAUDID GIVEN FOR 5-6/10 ABDOMEN PAIN. IVF RATE REDUCED TO 75ML/HOUR. FAMILY IN ROOM WITH PATIENT.
--- NOTE | 2021-08-08 14:37 | NUR ---
PT. USED CALL LIGHT APPROPRIATELY FOR ASSISTANCE WITH IV PUMP. PT. DENIED FURTHER NEEDS. LEFT RESTING WITH EYES CLOSED.
--- NOTE | 2021-08-08 17:00 | NUR ---
ROUNDING ON PT. HE DENIES PAIN OR NEEDS AT THIS TIME. FAMILY IN THE ROOM AND WATCHING TV
--- NOTE | 2021-08-08 19:00 | NUR ---
PATIENT GIVEN 8MG OF ZOFRAN FOR NAUSEA.
--- NOTE | 2021-08-08 19:41 | NUR ---
REPORT RECEIVED FROM DAY SHIFT RN. PT LYING IN BED ALERT AND ORIENTED. DENIES NEEDS. FAMILY IN ROOM. CALL LIGHT IN REACH.
--- NOTE | 2021-08-08 21:13 | NUR ---
EVENING ASSESSMENT COMPLETE. SCHEDULED MEDS ADMINSITERED PER EMAR. PT REPORTS ABD/BACK PAIN 12/03. PRN FOR PAIN ADMINISTERED. PT REPORTS NAUSEA AND FEELING LIKE HE "NEEDS TO BURP." SODA PROVIDED. MIDLINE INCISION INTACT WITH MYA. NO REDNESS OR DRAINAGE NOTED. ABD SOFT AND MILDLY DISTENDED. BOWEL TONES HYPOACTIVE. PT DENIES FLATUS. IVF INFUSING WNL. FAMILY IN ROOM. NO FURTHER NEEDS AT THIS TIME. CALL LIGHT IN REACH.
--- NOTE | 2021-08-08 21:30 | NUR ---
CALL LIGHT ANSWERED. SBA TO THE BATHROOM. PATIENT STATED HE IS PASSING GAS BUT NOT SURE IF ONLY GAS SO HE PREFER TO USE THE TOILET. PATIENT LIKE TO USE THE COMMODE BECAUSE IT IS HIGHER. FIRST TRY NO BOWEL MOVEMENT. PATIENT WENT TO BED BUT WENT BACK RIGHT AWAY TO THE COMMODE. THIS TIME PATIENT STATED "NOW I HAVE DIARRHEA". LOOSE BROWN BOWEL MOVEMENT MIXED WITH URINE. PATIENT IS BACK IN BED. CALL LIGHT WITHIN REACH. PRIMARY RN MADISON AND MOVER DIONICIO NOTIFIED.
--- NOTE | 2021-08-08 22:11 | NUR ---
PT REPORTS PASSING GAS AND LIQUID BM. REPORTS NAUSEA IMPROVED AFTER BM. PAIN IS TOLERABLE. DENIES FURTHER NEEDS.
--- NOTE | 2021-08-08 23:45 | NUR ---
CALL LIGHT ANSWERED. SBA TO THE BATHROOM. PATIENT URINATED UNMEASURED. PATIENT THOUGHT OF BOWEL MOVEMENT BUT THERE'S NONE. PATIENT IS BACK IN BED. JANES EMPTIED ( SECOND TIME ). PATIENT STATED IF MY NURSE HAVE TIME, I NEED PAIN MEDS. RN NOTIFIED.
--- NOTE | 2021-08-09 00:15 | NUR ---
IN TO CHECK ON PT AND OFFER PRN FOR PAIN. PT REQUESTS TO WAIT TIL 0200.
--- NOTE | 2021-08-09 01:38 | NUR ---
PT REPORTS BACK/ABD PAIN 12/03. PRN FOR PAIN ADMINISTERD PER EMAR. NEW BAG IVF INFUSING WNL. BLOOD SUGAR WNL. INSULIN HELD PER SLIDING SCALE. PT DENIES FURTHER NEEDS. CALL LIGHT IN REACH.
--- NOTE | 2021-08-09 03:00 | NUR ---
PT RESTING IN BED WITH EYES CLOSED. RESPIRATIONS EVEN. CALL LIGHT IN REACH.
--- NOTE | 2021-08-09 06:49 | NUR ---
VS AND I&O COMPLETE. PRN FOR PAIN ADMINISTERED FOR C/O BACK AND ABD PAIN. PT DENIES NAUSEA. REPORTS HE FEELS "BETTER" THIS AM. DENIES NEEDS. CALL LIGHT IN REACH.
--- NOTE | 2021-08-09 07:30 | NUR ---
PATIENT REPORT GIVEN TO THIS RN BY GABBY WALLACE. THIS RN CHECKED IN ON PATIENT AND HE DENIES ANY CARE NEEDS AT THIS TIME. FULL LIQUIDS MEAL TRAY ORDERED FOR THIS MORNING. CALL LIGHT IS IN REACH.
--- NOTE | 2021-08-09 08:46 | NUR ---
PT AWAKE IN BED EATING BREAKFAST. CALL LIGHT IN REACH. WHITE BOARD UPDATED. NO FURTHER NEEDS AT THIS TIME
--- NOTE | 2021-08-09 09:40 | NUR ---
PATIENT HAVING 7/10 ABD/BACK PAIN AND IV PAIN MEDICATION GIVEN AT PATIENT'S REQUEST. ALL AM MEDS GIVEN AND ASSESSMENT COMPLETE. ABD INCISION IS WELL APPROXIMATED AND PINK. JANES DRAIN PUT OUT 80MLS SEROSANGUINOUS FLUID. NO AM INSULIN NEEDED. PATIENT REMAINS ON 1,000ML FLUID RESTRICTION PER . NO OTHER CARE NEEDS NOTED AT THIS TIME AND CALL LIGHT IS IN REACH.
--- NOTE | 2021-08-09 11:40 | NUR ---
CHECKED IN ON PATIENT AND HE IS FEELING BETTER AND PAIN IS GONE. FAMILY IS IN THE ROOM WITH PATIENT VISTING. I ASKED PATIENT IF HE WANTED TO HAVE SOME OF THE BROTH HIS FAMILY BROUGHT FOR LUNCH AND HE SAID,"NO RIGHT NOW, I'LL CALL YOU WHEN I'M HUNGRY." PATIENT HAS NO OTHER NEEDS AT THIS TIME. CALL LIGHT IS IN REACH.
--- NOTE | 2021-08-09 12:56 | NUR ---
PATIENT NEEDED NO LUNCH INSULIN AND WILL CALL WHEN HE IS HUNGRY. PATIENT CURRENTLY CONTINUES TO VISIT WITH FAMILY IN HIS ROOM. NO CURRENT CARE NEEDS AT THIS TIME. CALL LIGHT IS IN REACH.
--- NOTE | 2021-08-09 14:47 | NUR ---
PATIENT UP 1PSBA WITH THIS RN TO THE BATHROOM AND BACK TO BED. PATIENT SAYS HE DID PASS A LITTLE GAS. BOWEL TONES CONTINUE TO BE HYPOACTIVE IN ALL FOUR QUADS. PATIENT DENIES THE NEED FOR ANY PAIN MEDICATION AT THIS TIME. VS AND I+O RECORDED WITH ASSESSMENT. CALL LIGHT IN REACH.
--- NOTE | 2021-08-09 19:05 | NUR ---
PATIENT SITTING UP ON SIDE OF BED, VISITOR IN ROOM. VITALS AND I&O'S CHARTED. RN RICHARD IN ROOM WHEN PATIENT ASKED ABOUT TAPING DOWN JANES DRAIN TUBE, RN AWARE AND WILL TAKE CARE OF IT. CALL LIGHT IN REACH. NO FURTHER NEEDS AT THIS TIME.
--- NOTE | 2021-08-09 19:40 | NUR ---
REPORT RECEIVED FROM DAY SHIFT RN. PT LYING IN BED WITH EYES CLOSED. RESPIRATIONS EVEN. FAMILY IN ROOM. CALL LIGHT IN REACH.
--- NOTE | 2021-08-09 20:15 | NUR ---
ASSISTED PRIMARY GABBY WALLACE. V/S AND I&O'S TAKEN AND CHARTED. CUP OF ICE AND WARM BROTH PROVIDED. PICKED UP GARBAGE AND USED BLANKETS.
--- NOTE | 2021-08-09 21:09 | NUR ---
EVENING ASSESSMENT COMPLETE. SCHEDULED MEDS ADMINISTERED PER EMAR. PRN FOR ABD/BACK PAIN ADMINSITERED. PT DENIES NAUSEA. JELLO AND BROTH PROVIDED. FULL LIQUIDS OFFERED BUT PT DID NOT WANT AT THIS TIME. BOWEL TONES ACTIVE. PT REPORTS FLATUS. ABD SOFT AND NON DISTENDED. MIDLINE INCISION WELL APPROXIMATED WITH MYA. NO REDNESS OR DRAINAGE NOTED. JANES SITE TO RLQ OPEN TO AIR. NO REDNESS OR DRAINAGE. JANES TUBING SECURED TO SKIN WITH FOAM TAPE FOR PT COMFORT. PT DENIES QUESTIONS OR CONCERNS. CALL LIGHT IN REACH.
--- NOTE | 2021-08-10 00:09 | NUR ---
PT RESTING IN BED WITH EYES CLOSED. RESPIRATIONS EVEN. CALL LIGHT IN REACH.
--- NOTE | 2021-08-10 00:42 | NUR ---
CALL LIGHT ANSWERED. PRN FOR PAIN ADMINISTERED PER EMAR. URINAL EMPTIED. JANES EMPTIED OF 75 ML SEROSANG DRAINAGE. NO FURTHER NEEDS.
--- NOTE | 2021-08-10 02:41 | NUR ---
PT RESTING IN BED ON RIGHT SIDE. EYES CLOSED. RESPIRATIONS EVEN. IVF INFUSING. CALL LIGHT IN REACH.
--- NOTE | 2021-08-10 06:32 | NUR ---
VS AND I&O COMPLETE. PRN ADMINISTERED FOR BACK PAIN. PT DENIES NAUSEA. BOWEL TONES ACTIVE. PT REPORTS FLATUS. BROTH AND JELLO PROVIDED. PT DENIES FURTHER NEEDS. CALL LIGHT IN REACH.
--- NOTE | 2021-08-10 07:30 | NUR ---
REPORT RECEIVED FROM GABBY WALLACE. PATIENT RESTING QUIETLY, EYES CLOSED, RESPIRATIONS ARE REGULAR AND EVEN, AND CALL LIGHT IS IN REACH. PATIENT HS NO CURRENT CARE NEEDS.
--- NOTE | 2021-08-10 09:31 | NUR ---
PATIENT CALLED FOR PAIN MEDICATION AND 1 PO NORCO GIVEN. PAIN 4/10 IN THE ABD AND BACK. PATIENT'S DAUGHTER AT BEDSIDE VISITING. PATIENT NEEDED NO AM INSULIN AND IS EATING HIS BREAKFAST. VS ARE STABLE. PATIENT NEEDS NO OTHE CARE NEEDS AT THIS TIME. AM ASSESSMENT COMPLETE AND AM MEDS GIVEN. CALL LIGHT IS IN REACH.
--- NOTE | 2021-08-10 11:30 | NUR ---
PATIENT SITTING UP IN THE BEDSIDE ARMCHAIR VISITING WITH HIS DAUGHTER. PATIENT'S PAIN STILL REMAINS 4/10, BUT IS NOT GETTING WORSE. INFORMED PATIENT I WOULD NEED TO CALL THE MD FOR ANY STRONGER MEDICATION. PATIENT DENIED THE NEED TO DO THAT AT THIS ITME AND WILL LET THIS NURSE KNOW IF HE IS GOING TO NEED ANY MORE PAIN MEDICATIONS. CALL LIGHT IS IN REACH.
--- NOTE | 2021-08-10 13:34 | NUR ---
THIS RN CHECKEDON PATIENT AND MAIN IV COMPLETE AND NEW BAG STARTED. MOTRIN GIVEN FOR 3/10 ABD/BACK PAIN. NEW ICE WATER GIVEN. PATIENT DENIES ANY OTHE CARE NEEDS AT THIS TIME. CALL LIGHT IS IN REACH.
--- NOTE | 2021-08-10 15:40 | NUR ---
THIS RN WENT TO CHECK ON PATIENT AND HE IS HAVING 4/10 ABD/BACK PAIN. 1 PO NORCO GIVEN. PATIENT DENIED ANY OTHER CARE NEEDS AT THIS TIME. PATIENT GETTING UP INDEPENDENTLY TO THE BATHROOM. CALL LIGHT ARMANDO PIMENTEL.
--- NOTE | 2021-08-10 16:32 | NUR ---
Update by Rn. Pt is up in room without issues, passing gas. No issues. Plan remains for pt to dc to home with family.
--- NOTE | 2021-08-10 17:49 | NUR ---
PATIENT HAS BEEN IMPROVING ALL DAY. PATIENT UP MOVING A LITTLE EASIER WITH HER WALKER IN THE ROOM. PATIENT'S VITAL SIGNS WERE HYPOACTIVE AT START OF SHIFT AND ARE ACTIVE NOW. HAD SOME NAUSEA THIS AM WHICH RESOLVED AND PATIENT HAS A POOR APPITITE BUT IS EATING LIMITED FULL LIQUIDS WITH OUT NAUSEA SINCE THE AM. PATIENT HAS SOME RED WOODWARD ON HER LOWER BACK WHICH LOOK LIKE SHE HAS GOTTTEN HER HEATING PAD BUNCHED UP BEHIND HER BACK. LOTION MASSAGED INTO THE AREA BY THIS PATIENT AND AREA LOOKS BETTER. PATIENT WATCHING TV FROM THE BEDSIDE ARM CHAIR AT THIS TIME. CALL LIGHT IS IN REACH.
--- NOTE | 2021-08-10 18:30 | NUR ---
PATIENT WANTED ME TO CALL AND ASK IF HE COULD HAVE A DIFFERENT PAIN MED, BECAUSE THE NORCO JUST MADE HIM SLEEPY AND DIDN'T TAKE AWAY HIS PAIN. PAIN HAS BEEN 3-5 ALL DAY AND HE WOULD LIKE IT TO A 2/10 OR LESS. INFORMED THE PATIENT SOME PAIN IS GOING TO BE EXPECTED AND IT MAY NOT BE COMFORTABLE FOR SOME TIME AFTER THIS MAJOR SURGERY. THIS RN CALLED AND HE ORDERED TORADOL 15MG IV Q6HRS PRN PAIN AND THIS RN JUST GAVE PATIENT HIS FIRST DOSE. PATIENT HAS HAD A GOOD DAY OTHERWISE, EATING ALMOST 100% EACH MEAL. BOWEL TONES ARE ACTIVE. PATIENT HAS BEEN UP INDEPENDENT IN THE ROOM. PATIENT IS PASSING GAS, BUT NO BM YET. VS ARE STABLE AND CALL LIGHT IS IN REACH.
--- NOTE | 2021-08-10 19:58 | NUR ---
REPORT RECEIVED FROM DAY SHIFT RN. PT LYING IN BED WITH EYES CLOSED. RESPIRATIONS EVEN. CALL LIGHT IN REACH.
--- NOTE | 2021-08-10 22:54 | NUR ---
EVENING ASSESSMENT COMPLETE. SCHEDULED MEDS ADMINISTERED PER EMAR. PRN FOR PAIN ADMINISTERED. PT UP TO BR INDEPENDENTLY TO VOID AND HAVE LIQUID BROWN BM. GAIT STEADY. BACK TO BED, CLAIRE WELL. DENIES NAUSEA. ABD SOFT AND NON DISTENDED. MIDLINE INCISION WELL APPROXIMATED WITH MYA IN PLACE. NO REDNESS OR DRAINAGE NOTED. 85 ML SEROSANG DRAINAGE EMPTIED FROM JANES. IVF INFUSING WNL. FRESH WATER AND SPRITE PROVIDED. PT DENIES QUESTIONS OR CONCERNS. CALL LIGHT IN REACH.
--- NOTE | 2021-08-11 00:01 | NUR ---
PT RESTING IN BED WITH EYES CLOSED. RESPIRATIONS EVEN. CALL LIGHT IN REACH.
--- NOTE | 2021-08-11 05:30 | NUR ---
[facility] DOWN TIME [id number]. SEE PAPER CHART.
--- NOTE | 2021-08-11 06:40 | NUR ---
SCHEDULED MEDS ADMINISTERED. PRN FOR ABD/BACK PAIN ADMINISTERED PER EMAR. VS AND I&O OBTAINED. JANES WITH 110 SEROSANG DRAINAGE. IV SL PER ORDER. PT DENIES FURTHER NEEDS. CALL LIGHT IN REACH.
--- NOTE | 2021-08-11 07:15 | NUR ---
THIS RN RECEIVED REPORT FROM MADISON PIERRE. PT APPEARS TO BE RESTING
--- NOTE | 2021-08-11 07:20 | DS ---
[facility] [address] [place], [place] [address] Signed ADMISSION DATE: 08/02/2021 DISCHARGE DATE: 08/11/2021 FINAL DIAGNOSES: 1. Right colon cancer. 2. Benign prostatic hyperplasia. PROCEDURES: 1. Colonoscopy on 08/04/2021. 2. Right colectomy on 08/06/2021. 3. CT scan chest, abdomen, and pelvis. HISTORY OF PRESENT ILLNESS: Mloina is a 71-year-old gentleman, who was having pain and feeling a fullness in the right side of his abdomen. He ended up in our local emergency room. He had been admitted by our local surgeon, Dr. Garay. CT scan of the abdomen and pelvis showed what was either a tumor or maybe even localized colitis in his right colon. I had taken over his care the following day. HOSPITAL COURSE: Molina was admitted as above. I did his colonoscopy and found his obvious tumor in the right proximal colon. He had a few polyps as well. However, that probably was necrotic tumor. He was able to get liquid by his tumor, so therefore he was able to tolerate the bowel prep. He went to the operating room on 08/06/2021 for a fairly extensive right colectomy for his tumor. His intraop and postop course have been uncomplicated. He is now tolerating a soft diet with lots of flatus and several bowel movements. His abdomen remains soft, flat, and nontender. His incision is intact without any local signs or symptoms of infection. His drain site in the right side of his abdomen also without any local signs or symptoms of infection. Due to his progress, he is going to be discharged to home. DISCHARGE PLANS AND MEDICATIONS: Molina will be discharged home with [place] 10/325 one tablet p.o. q.6 hours p.r.n. for severe postoperative pain. We will dispense 30 tablets with no refills. He can use Tylenol as needed for [id number] postoperative pain. He will avoid NSAIDs because of his history of diabetes. He told me he stopped the metformin because he had diarrhea. He is not sure if that was from the tumor or from the metformin. He will discuss that with his primary care provider. He was having frequent small episodes of urination here in the hospital. We added tamsulosin 0.4 mg one tablet p.o. daily with good results. We will dispense him 30 tablets with one refill. He is going to resume all his other chronic medications except the metformin. He is going to continue a Electronically Signed By: NA TELLO MD 08/11/21 0720 PATIENT NAME: MOLINA CEE DISCHARGE SUMMARY DATE OF : 54 REPORT #: [id number] PHYSICIAN: NA TELLO MD PCP: KENDRA HELM REPORT IS CONFIDENTIAL AND NOT TO BE RELEASED WITHOUT AUTHORIZATION [address] [address] Signed regular diet at home. We will leave the drain in place and he will record the drain output each day. We will leave all his anjel in place. He can continue his activities of daily living including walking up and down stairs and showering and bathing as usual. I have asked him not to lift over about 20 pounds. I will have him back in the office in a week or so after discharge. He is going to be spending his time here in [place] with his daughter to recover and for his cancer treatments. In that regard, he is considering establishing with a primary care provider here in [place]. He is welcome to make those arrangements. I have reviewed this with Molina. He has expressed understanding and agrees with the above plan. Na Tello MD ALB/MODL /[id number] cc: Na Tello MD [facility] Copies: NA TELLO MD ~ Electronically Signed By: NA TELLO MD 08/11/21 0720 PATIENT NAME: MOLINA CEE MIGUEL DISCHARGE SUMMARY DATE OF : 54 REPORT #: [id number] PHYSICIAN: NA TELLO MD PCP: KENDRA HELM REPORT IS CONFIDENTIAL AND NOT TO BE RELEASED WITHOUT AUTHORIZATION
--- NOTE | 2021-08-11 09:30 | NUR ---
THIS RN IN PTS ROOM TO GIVE PT MORNING MEDS. PT STATES THAT HE IS DOING WELL THIS AM, PAIN MEDS ARE WORKING WELL. THIS RN ALSO DISCUSSED WITH PT ABOUT HOW TO EMPTY HIS JANES DRAIN WHEN HE GOES HOME. PT STATED THAT HE WILL HAVE A DAUGHTER DO IT. THIS RN STILL HAD PT LEARN HOW TO DO IT. PT ABLE TO WALK THIS RN THROUGH HOW HE WOULD DO IT. THIS RN ALSO DISCUSSED WITH PT HOW TO KEEP A LOG OF OUTPUT. PT DENIES NAUSEA THIS AM AFTER EATING BREAKFAST. CALL LIGHT WITHIN REACH
--- NOTE | 2021-08-11 10:00 | NUR ---
Spoke with pt. He plans on dc today. Asked if he has needs, and he would like a commode over his toilet. Discussed Jay. He asks I call his daughter. Called a [place] and updated. Printed contracted fro [employer] and gave to Mecca when she arrived. She signed and I faxed so they can pick the commode up on their way home without having to wait. They deny further needs.
[2021-08-11] MEDS ORDERED: HYDROCODON-ACE1 EAC8 PO (10:15)
[2021-08-11] MEDS ORDERED: FLOMAX0.4 MG PO (10:18)
[2021-08-11] MEDS ORDERED: TYLENOL325 MG (10:19)
--- NOTE | 2021-08-11 13:01 | NUR ---
CONNECTED WITH FAMILY AND GAVE ENCOURAGEMENT AND SUPPORT FOR DC. WILL FOLLOW
--- NOTE | 2021-08-12 12:11 | PATH ---
[facility] [address] [place], [place] [address] Signed SPECIMEN(S): A TERMINAL ILEUM WITH RIGHT COLON SPECIMEN SOURCE: A. TERMINAL ILEUM WITH RIGHT COLON CLINICAL HISTORY: Right colon mass, colitis. FINAL PATHOLOGIC DIAGNOSIS: Right colon, terminal ileum, and appendix, right hemicolectomy: - Invasive adenocarcinoma with the following features: - Tumor site: Cecum. - Histologic type: Adenocarcinoma with mucinous features. - Histologic grade: G1, well differentiated. - Tumor size: 12.5 x 7.4 x 3.2 cm. - Multiple primary sites: Not applicable (no additional primary sites present). - Tumor extent: Tumor invades through muscularis propria into pericolorectal tissue. - Macroscopic tumor perforation: Not identified. - Lymphovascular invasion: Not identified. - Perineural invasion: Not identified. - Treatment effect: No known presurgical therapy. - Margins: - Margin status for invasive carcinoma: All margins negative for invasive carcinoma. - Margin status for noninvasive tumor: All margins negative for high-grade dysplasia/intramucosal carcinoma and low-grade dysplasia. - Regional lymph nodes: All regional lymph nodes negative for tumor. - Number of lymph nodes examined: 40. - Tumor deposits: Not identified. - Distant metastasis: Not applicable. - Additional findings: Colonic tubular adenoma, peritumoral abscess, serosal fibrosis; appendix present with no histopathologic abnormality. - Microsatellite instability (MSI) testing by IHC: - MLH1, MSH2, MSH6,and PMS2: Intact nuclear expression. - Interpretation: Normal pattern. - Pathologist Stage Classification (pTNM, AJCC 8th ed.): pT3 pN0 PATIENT NAME: EMILY CEE PATHOLOGY DATE OF : 54 REPORT #: [id number] PHYSICIAN: [employer] PATHOLOGY PCP: KENDRA HELM REPORT IS CONFIDENTIAL AND NOT TO BE RELEASED WITHOUT AUTHORIZATION [facility] [address] [place], [place] [address] Signed COMMENT: The clinical history of "colitis" is noted. Chronic inflammation is seen in the colonic wall adjacent to the tumor, as well as peritumoral abscess formation, but no evidence of inflammatory bowel disease, such as ulcerations, chronic or active colitis, or granulomas are seen in the background mucosa. The inflammation is favored to be secondary to the carcinoma. Some of the regional lymph nodes demonstrate sinusoidal plasma cell and immunoblastic proliferations. This was reviewed by another member of our pathology staff with board certification in hematopathology who favors this to be a reactive proliferation (likely secondary to tumor). As part of [email or web address]' Quality Improvement Program, this case was reviewed by another member of our pathology staff. A diagnostic alert was initiated by Dr. Brown on 08/11/21. MICROSATELLITE INSTABILITY COMMENT: Tumor cells show no loss of nuclear expression of MMR proteins. This correlates with a low probability of microsatellite instability. However, if there is a high clinical suspicion for Mckeon syndrome (hereditary non-polyposis colorectal carcinoma syndrome) in this patient, additional testing should be considered. Please contact [email or web address] if such testing is indicated. NAL: :cml:C1NR MICROSCOPIC EXAMINATION: Histologic sections of all submitted blocks are examined by light microscopy. These findings, together with the gross examination, support the pathologic diagnosis. A panel of four antibodies is selected which will detect 95% of microsatellite unstable carcinomas. Testing is performed at the request of Caterina Brown M.D.. Block: A9. Recut HE slide is prepared from the block. The presence of neoplastic glands and non-neoplastic internal control glands or stroma is confirmed. Internal control cells for MLH1, MSH2, PMS2 and MSH6 are positive. Neoplastic gland cells show the following: - MLH1: Positive. - MSH2: Positive. - MSH6: Positive. - PMS2: Positive PATIENT NAME: EMILY CEE PATHOLOGY DATE OF : 54 REPORT #: [id number] PHYSICIAN: LETHA PATHOLOGY PCP: KENDRA HELM REPORT IS CONFIDENTIAL AND NOT TO BE RELEASED WITHOUT AUTHORIZATION [facility] [address] [place], [place] [address] Signed Technical [email or web address] [facility], [address] [address] (CLIA# [id number]). GROSS DESCRIPTION: The specimen, labeled "SM, A," and designated on the requisition "terminal ileum with right colon," is received in formalin and consists of a previously opened segment of terminal ileum (25 cm in length x 5.0 cm in circumference) attached to previously opened cecum and ascending colon (24.5 cm in length and ranging in circumference from 5.3-12.5 cm). There is also attached mesenteric fat extending up to 3.5 cm, and portion of omentum (11.5 x 6.0 x 2.5 cm). The serosa of the terminal ileum is pink-gaitan and smooth with focal white-gaitan indurated area (inked blue) measuring 3.5 x 1.8 cm, located 9.2 cm from the ileal margin and 15 cm from the ileocecal valve. The serosa of the ascending colon is pink-gaitan and smooth, and the cecal serosa has a firm, roughened strictured area (inked blue). The terminal ileum mucosa is pink-gaitan and grossly unremarkable. There is a pink-gaitan, firm to centrally softened circumferential mass (12.5 x 7.4 x 3.2 cm) within the cecum that grossly involves the serosa and extends into the surrounding adipose. The mass corresponds to the previously mentioned area of stricture. The mass involves the ileocecal valve and is located 3.3 cm the appendiceal orifice, 25 cm from the ileal margin, 14.5 cm from the distal bowel margin, 5.5 cm from the nearest mesenteric margin, and 7.3 cm from the mesenteric root. There is also a gaitan, bosselated polyp in the ascending colon located 4.3 cm from the cecal mass, and 10.4 cm from the distal bowel margin. The remaining mucosa is pink-gaitan and unremarkable. The ileal margin and mesenteric margins are inked black. The distal bowel margin is inked green. The strictured area and serosa surrounding the mass is inked blue. The mass is sectioned to reveal a white-gaitan, cystic cut surface containing mucoid material. The ascending colon polyp is bisected to reveal a pink-gaitan cut surface. The polyp is grossly confined to the mucosa. Also received is a previously incised appendix (4.0 cm in length x 0.7 cm in diameter) that has pink-gaitan, smooth serosa and is serially sectioned to reveal pink-gaitan unremarkable mucosa. The omentum is palpated and sectioned to reveal a yellow-gaitan unremarkable cut surface. The adipose is palpated and 40 possible lymph nodes are identified (ranging in PATIENT NAME: EMILY CEE PATHOLOGY DATE OF : 54 REPORT #: [id number] PHYSICIAN: LETHA PATHOLOGY PCP: KENDRA HELM REPORT IS CONFIDENTIAL AND NOT TO BE RELEASED WITHOUT AUTHORIZATION [facility] [address] [place], [place] [address] Signed size from 0.3-1.7 cm in greatest dimension). All possible lymph nodes are submitted entirely. Cdl Team Truck Driver sections are submitted as follows: Cassette Summary: (A1-A2) Ileal and mesenteric margins, shaved, en face (A3) Distal bone margin, shaved, en face (A4) Terminal ileum with indurated serosa (A5) Grossly normal terminal ileum (A6) Mass to ileocecal valve (A7-A8) Mass to serosa (A9-A12) Mass to adipose (A13) Mass to proximal uninvolved mucosa (A14) Mass to distal uninvolved mucosa (A15) Additional mass (A16) Ascending colon polyp, bisected (A17) Appendix tip, bisected and cross section (A18) Ascending colon and omentum (A19) 6 possible lymph nodes, intact (A20) 5 possible lymph nodes, intact (A21) 5 possible lymph nodes, intact (A22) 4 possible lymph nodes, intact (A23) 4 possible lymph nodes, intact (A24) 3 possible lymph nodes, one intact, one inked blue and bisected, one inked black and bisected (A25) 2 possible lymph nodes, one intact, one inked black and bisected (A26) 2 possible lymph nodes, one inked blue, both bisected (A27) 2 possible lymph nodes, one inked blue, both bisected (A28) 1 possible lymph node, bisected (A29) 2 possible lymph nodes, one trisected, one inked blue and bisected (A30) 1 possible lymph node, bisected (A31) 1 possible lymph node, bisected (A32) 1 possible lymph node, trisected (A33) 1 possible lymph node, bisected AC (under the direct supervision of a pathologist) The Gross Description was prepared using a voice recognition system. The report was reviewed for accuracy; however, sound-alike word errors, addition and/or deletions may occur. If there is any question about this report, please contact Client Services. PATIENT NAME: EMILY CEE PATHOLOGY DATE OF : 54 REPORT #: [id number] PHYSICIAN: LETHA SCOTT PCP: KENDRA HELM REPORT IS CONFIDENTIAL AND NOT TO BE RELEASED WITHOUT AUTHORIZATION [address] [address] Signed ADDITIONAL NOTES: Immunohistochemical and/or in situ hybridization studies were performed on this case with the appropriate positive controls that react as expected. This test was developed and its performance characteristics determined by [email or web address]. It has not been cleared or approved by the U.S. Food and Drug Administration. The FDA has determined that such clearance or approval is not necessary. This test is used for clinical purposes. It should not be regarded as investigational or for research. [email or web address] is certified under the Clinical Laboratory Improvement Amendments of 1988 (CLIA) as qualified to perform high complexity clinical laboratory testing. PERFORMING LABORATORY: The technical component was performed by [email or web address], [address] [place] [id number] (Framing Mill Operator: Manuela Sol MD; CLIA# [id number]). Professional interpretation [facility] by [email or web address], [address] [place] [address] (CLIA# [id number]). Diagnostician: Caterina Brown MD Pathologist Electronically Signed 08/12/2021 Copies: ~ PATIENT NAME: EMILY CEE IMGUEL PATHOLOGY DATE OF : 54 REPORT #: [id number] PHYSICIAN: LETHA SCOTT PCP: KENDRA HELM REPORT IS CONFIDENTIAL AND NOT TO BE RELEASED WITHOUT AUTHORIZATION
== END 2021-08-11 12:35 | disposition home or self-care (01) | DRG 329 ==
LOC: ED 09:04 → MS 13:49
PROVIDERS: Colon & Rectal Surgery; ADMIT Surgery; ATTEND Surgery
PROC: 0DBP8ZZ Excision of Rectum, Via Natural or Artificial Opening Endoscopic (ICD-10-PCS; 2021-08-04)
PROC: 0DBL8ZZ Excision of Transverse Colon, Via Natural or Artificial Opening Endoscopic (ICD-10-PCS; 2021-08-04)
PROC: 0DBK8ZX Excision of Ascending Colon, Via Natural or Artificial Opening Endoscopic, Diagnostic (ICD-10-PCS; 2021-08-04)
PROC: 0DB78ZX Excision of Stomach, Pylorus, Via Natural or Artificial Opening Endoscopic, Diagnostic (ICD-10-PCS; 2021-08-04 10:00)
PROC: 0DTF0ZZ Resection of Right Large Intestine, Open Approach (ICD-10-PCS; principal; 2021-08-06 08:30)
DX: C18.2 Malignant neoplasm of ascending colon (principal); U07.1 COVID-19; K56.7 Ileus, unspecified; K57.32 Diverticulitis of large intestine without perforation or abscess without bleeding; K52.9 Noninfective gastroenteritis and colitis, unspecified; K29.70 Gastritis, unspecified, without bleeding; E11.9 Type 2 diabetes mellitus without complications; E03.9 Hypothyroidism, unspecified; Z79.899 Other long term (current) drug therapy; D64.9 Anemia, unspecified; I10 Essential (primary) hypertension; N40.0 Benign prostatic hyperplasia without lower urinary tract symptoms; E78.00 Pure hypercholesterolemia, unspecified; Z96.653 Presence of artificial knee joint, bilateral; Z98.890 Other specified postprocedural states; K64.8 Other hemorrhoids
CPT/HCPCS: 00790; 36415; 36430; 64450; 71260; 74177; 76942; 80048; 80076; 80503; 81001; 82378; 83690; 83735; 84100; 84134; 85025; 86850; 86900; 86901; 86922; 87077; 93005; 93010; 94760; 94762; 99285-25; A9270; C9113; J0131; J0330; J0690; J1100; J1170; J1650; J1815; J1885; J2001; J2250; J2405; J2543; J2704; J2795; J3010; J3475; J7030; J7121; P9016; Q9967; U0003

== ENCOUNTER 2021-12-05 13:24 | Emergency (ER) | payer MEDICARE ==
[~2021-12-05] VITALS: Ht 177.8 cm; Wt 88.9 kg
[~2021-12-05 13:24] MED LIST: COSOPT EYE DROP10 ML OU; FEROSUL325 MG PO; FLOMAX0.4 MG PO; HYDROCODON-ACE1 EAC8 PO; LEVOTHYROXINE100 MCG PO; LISINOPRIL-HCT1 EAC2 PO; METFORMIN HCL1000 MG PO; PRAVASTATIN SOD80 MG PO; TRAVOPROST2.5 ML OU; TYLENOL325 MG
[2021-12-05] MEDS ORDERED: BACTRIM DS TAB1 EACH PO (14:51)
== END 2021-12-05 15:12 | disposition home or self-care (01) ==
LOC: ED 13:24
DX: R31.0 Gross hematuria (principal); R30.0 Dysuria; E11.9 Type 2 diabetes mellitus without complications; E03.9 Hypothyroidism, unspecified; Z85.038 Personal history of other malignant neoplasm of large intestine; Z79.899 Other long term (current) drug therapy
CPT/HCPCS: 81001; 99283; A9270

== ENCOUNTER 2022-07-26 07:38 | Day surgery (SDC) | payer MEDICARE, OTHER ==
[~2022-07-26] VITALS: Ht 167.6 cm; Wt 93.1 kg
[~2022-07-26 07:38] MED LIST changes: +ATORVASTATIN CA80 MG PO; +B COMPLEX1 EACH PO; +BACTRIM DS TAB1 EACH PO; +LEVOTHYROXINE100 MC2 PO; +OMEGA 3 FISH O1 EACH PO; +VITAMIN A2400 MCG PO; +VITAMIN C500 M1 PO; +VITAMIN D250 MCG PO; +VITAMIN E100 UNI2 PO
[2022-07-26] MEDS ORDERED: VITAMIN D325 MC2 PO (08:03)
--- NOTE | 2022-07-26 09:57 | NUR ---
07/26/22 0957 Mary Beth Sheikh 3594-PATIENT ARRIVED TO PACU ON 2L NC RR EVEN. PATIENT AROUSES TO VERBAL STIMULI REMAINS DROWSY AND DOZES BACK TO SLEEP. IVF INFUSING. ABDOMEN SOFT. STOP BANG SCORE OF 4 SLEEP APNEA HANDOUT TO BE GIVEN.
--- NOTE | 2022-07-27 08:20 | OR ---
[facility] [address], [place] [address] Signed DATE OF OPERATION: 07/26/2022 SURGEON: Na Tello MD PREOPERATIVE DIAGNOSES: 1. Right colectomy for stage II colon cancer with end-to-side ileocolonic anastomosis in July 2021 at age 71. 2. Diverticulosis. 3. Internal hemorrhoids. 4. Hyperplastic and adenomatous polyps July 2021 at age 71. POSTOPERATIVE DIAGNOSES: 1. Minimal sigmoid diverticulosis. 2. Minimal internal hemorrhoid tissue. 3. End-to-side ileocolonic anastomosis at 110 cm (with biopsy). 4. 3 mm polyps x2 at 20 cm (rectosigmoid junction). PROCEDURE: Colonoscopy with hot biopsy. ESTIMATED BLOOD LOSS: None. INDICATIONS: Molina is a 72-year-old gentleman who came in July of 2021. He was in the hospital with a large right colon mass. His colonoscopy confirmed the mass as adenocarcinoma along with his diverticulosis and internal hemorrhoids. He had a hyperplastic polyp as well. We did his right colectomy two days later with an end-to-side ileocolonic anastomosis. All 40 lymph nodes were negative. He had one tubular adenomatous polyp in that specimen as well. He did not require chemotherapy. He said he is doing well. He is eating well and having good bowel movements. However, he has noticed some bulging around his umbilicus. He said it is not painful but he clearly has an incisional hernia. We had ordered a CT scan of the abdomen and pelvis, but apparently he has not heard from our Radiology department. I did leave a message for my medical technical writer. We will check on that for him. He returns today for his followup colonoscopy. In the office, I gave him a pamphlet on colonoscopy. He recalls the test well. There is risk including, but not limited to gas bloating, crampy abdominal pain, bleeding, perforation requiring surgery, and missed diagnosis. He also recalls the need for IV conscious sedation. He had expressed understanding and wished to proceed. Electronically Signed By: NA TELLO MD 07/27/22 0820 PATIENT NAME: MOLINA CEE OPERATIVE REPORT DATE OF : 54 REPORT #: [id number] PHYSICIAN: NA TELLO MD PCP: NARENDRA SORENSON MD REPORT IS CONFIDENTIAL AND NOT TO BE RELEASED WITHOUT AUTHORIZATION [facility] [address], [place] [address] Signed PROCEDURE NOTE: Molina was taken into our endoscopy suite and placed in the left lateral decubitus position. He was given Versed and fentanyl for IV sedation. A digital rectal exam was performed and this was unremarkable. He has an external anal skin tag in the anterior midline. He had good sphincter tone. There were no masses. Prostate is indurated and a little swollen. The adult colonoscope was then introduced and advanced up to the proximal transverse colon without difficulty. His anastomosis is at 110 cm. There was a little puckering on the one side and we went ahead and took a biopsy of that area. He had one silk stitch sticking through which was unremarkable. His prep was quite excellent. We actually turned the colonoscope and went up into the terminal ilium about 10 cm. It was quite healthy. The scope was then slowly withdrawn. He does have a few diverticula in the sigmoid colon. They were moderate in size, few in number, and scattered about. At the rectosigmoid junction at around 20 cm, he had two tiny polyps were removed with hot biopsy forceps. We had retroflexed the scope and he has very minimal internal hemorrhoid tissue. After this, the gas was suctioned out and the colonoscope removed. Molina tolerated the procedure quite well. RECOMMENDATIONS: Molina will follow up my office in 7 to 14 days to review his results. We will also follow up on CT scan of his abdomen and pelvis for the periumbilical ventral incisional hernia. Na Tello MD [facility]/MODL /[id number] cc: MD Karin Patricia MD Andrew L Bower, MD Copies: NARENDRA SORENSON MD Electronically Signed By: NA TELLO MD 07/27/22 0820 PATIENT NAME: MOLINA CEENDIZ OPERATIVE REPORT DATE OF : 54 REPORT #: [id number] PHYSICIAN: NA TELLO MD PCP: NARENDRA SORENSON MD REPORT IS CONFIDENTIAL AND NOT TO BE RELEASED WITHOUT AUTHORIZATION [address] [address] Signed KARIN ESPINO MD, ANDREW L MD ~ Electronically Signed By: NA TELLO MD 07/27/22 0820 PATIENT NAME: MEÑO CEEDELMY RIVERA OPERATIVE REPORT DATE OF : 54 REPORT #: [id number] PHYSICIAN: NA TELLO MD PCP: NARENDRA SORENSON MD REPORT IS CONFIDENTIAL AND NOT TO BE RELEASED WITHOUT AUTHORIZATION
== END 2022-07-26 10:45 | disposition home or self-care (01) ==
LOC: DS 07:38 → OPS 07:38 → DS 09:00 → OPS 09:00
PROVIDERS: ATTEND Colon & Rectal Surgery
PROC: 0DBK8ZX Excision of Ascending Colon, Via Natural or Artificial Opening Endoscopic, Diagnostic (ICD-10-PCS; principal; 2022-07-26 09:00)
DX: K63.5 Polyp of colon (principal); K57.30 Diverticulosis of large intestine without perforation or abscess without bleeding; K64.8 Other hemorrhoids; K43.2 Incisional hernia without obstruction or gangrene; I10 Essential (primary) hypertension; E11.9 Type 2 diabetes mellitus without complications; E78.5 Hyperlipidemia, unspecified; E03.9 Hypothyroidism, unspecified; E66.9 Obesity, unspecified; Z85.038 Personal history of other malignant neoplasm of large intestine
CPT/HCPCS: 99153; G0500; J0690; J2250; J3010; J7121

== ENCOUNTER 2022-09-16 07:45 | Day surgery (SDC) | payer MEDICARE, OTHER ==
[~2022-09-16] VITALS: Ht 167.6 cm; Wt 94.5 kg
[~2022-09-16 07:45] MED LIST changes: +VITAMIN D325 MC2 PO
[2022-09-16] MEDS ORDERED: CHILDREN'S ASPI81 M1 PO (08:13)
--- NOTE | 2022-09-16 11:02 | NUR ---
09/16/22 1102 Melly Espinosa 1048- PT ARRIVES TO PACU NONAROUSABLE TO STIMULI. OXYGEN SAT LOW 90'S ON RA. PT SNORING. JAW THRUST/ LIFT COMPLETED TO MAINTAIN PATENT AIRWAY. OXYGEN SAT DROPPED TO THE HIGH 80'S ON RA. PT PLACED ON 6L OF OXYGEN VIA MASK. 1055- PT IS ABLE TO OPEN HIS EYES TO STIMULI. PT REPORTS NO PAIN OR NAUSEA. 1056- OXYGEN TITRATED OFF. 1059- ICE PACK APPLIED TO PT'S ABD WITH GOWN IN BETWEEN ICE PACK AND SKIN. 1102- PT PROVIDED ICE WATER PER HIS REQUEST. PT TOLERATING WELL.
--- NOTE | 2022-09-16 11:35 | NUR ---
PT ARRIVES TO UNIT VIA STRETCHER FROM PACU. REPORT RECIEVED FROM JEANINE PIERRE. PT REPORTS PAIN 3/10 AT THIS TIME AND STATES THIS IS TOLERABLE. PT REPORTS NO NAUSEA, SOB, DIZZINESS, N/T AT THIS TIME. DRESSING HAS SMALL AMOUNT OF SS DRAINAGE AT TOP AND BOTTOM OF MIDLINE INCISION. PT TOLERATING SMALL SIPS OF WATER W/OUT DIFFICULTY SWALLOWING, APPLESAUCE AND CRACKERS PROVIDED. PT ON 2L OF O2 AT THIS TIME W/O2 AT 94% VIA PULSE OX. PT IS ALERT AND ORIENTED, DAUGHTER AND AT BEDSIDE. ICE PACK, BRACING PILLOW, AND SCD'S IN PLACE AT THIS TIME. CALL LIGHT WITHIN REACH, NO FURTHER NEEDS AT THIS TIME.
--- NOTE | 2022-09-16 12:26 | NUR ---
PT RESTING IN ROOM ON PHONE. THIS RN TITRATED TO RA, O2 SATS AT 92% AT THIS TIME VIA PULSE OX. PT REPORTS PAIN 4/10 AT THIS TIME, REQUESTS PRN MEDICATION, GIVEN (SEE EMAR). CALL LIGHT WITHIN REACH, NO FURTHER NEEDS AT THIS TIME.
--- NOTE | 2022-09-16 12:35 | NUR ---
IN ROOM FOR ASSESSMENT AND VS. PT REPORTS PAIN REMAINS 4/10 (SEE EMAR). PT REPORTS NO NAUSEA, DIZZINESS, SOB, N/T. NO ACUTE CHANGES FROM PREVIOUS ASSESSMENT. NO NEW BLEEDING ON MIDLINE DRESSING. CALL LIGHT WITHIN REACH, PT REPORTS NO FURTHER NEEDS AT THIS TIME.
--- NOTE | 2022-09-16 12:35 | OR ---
[facility] [address] [place], [place] [address] Signed DATE OF OPERATION: 09/16/2022 SURGEON: Na Tello MD PREOPERATIVE DIAGNOSES: 1. Left paramidline supraumbilical hernia (33 mm). 2. Right paramedian supraumbilical hernia (12 mm). 3. Right paramedian hernia lateral to umbilicus (21 mm). 4. Right paramedian infraumbilical (10 mm) hernia. POSTOPERATIVE DIAGNOSES: 1. Left paramidline supraumbilical hernia (33 mm). 2. Right paramedian supraumbilical hernia (12 mm). 3. Right paramedian hernia lateral to umbilicus (21 mm). 4. Right paramedian infraumbilical (10 mm) hernia. PROCEDURE: Primary suture repair of four ventral hernias x4. ESTIMATED BLOOD LOSS: 25 mL. FINDINGS: Molina turned out to have four hernias, three on the right and one on the left. We had to clear off some omentum, but there was no bowel adherent anywhere around the abdominal wall. There was no undue tension of the small hernias and they were all closed primarily with interrupted [id number] #2 Prolene. INDICATIONS: Molina is a 72-year-old gentleman who is now retired from a local [employer]. He has had laparoscopic right inguinal hernia repairs as well as bilateral knee replacements. I had to help him in July of 2021 with a large colon cancer requiring a right colectomy. We used a standard periumbilical midline incision. In due time, he had developed these four hernias. Three were obvious on the CT scan and two were obvious on physical exam. There was some concern about bowel behind these areas as well. In the office, I had met with Molina and his and his daughter. We had reviewed these in detail. I gave them our brochure on hernias. We discussed the nature of an incisional hernia. We discussed primary suture repair versus mesh repair. He understands the expected intraop and postop course. There is risk including, but not limited to bleeding, infection, scarring, change in contour of the skin, recurrent Electronically Signed By: NA TELLO MD 09/16/22 1235 PATIENT NAME: MOLINA CEENDIZ OPERATIVE REPORT DATE OF : 54 REPORT #: [id number] PHYSICIAN: NA TELLO MD PCP: NARENDRA SORENSON MD REPORT IS CONFIDENTIAL AND NOT TO BE RELEASED WITHOUT AUTHORIZATION [facility] [address], [place] [address] Signed hernias, damage to bowel, infection of mesh requiring removal, as well as chronic pain. He had expressed understanding and wished to proceed. DESCRIPTION OF PROCEDURE: I met with Molina, his granddaughter and his in our preop area. After reviewing his findings, we marked the two probable hernias appropriately. After this, he was taken in the operating room and placed in the supine position under general endotracheal tube anesthesia. He was given preoperative antibiotics along with subcutaneous heparin. SCDs were utilized. A Medina catheter was inserted without difficulty with return of clear yellow urine. He was then prepped and draped in the usual sterile fashion. Once again, I could feel the two hernias. We excised his periumbilical midline scar with the help of the 20 blade knife. That skin was quite thin and atrophic. It was passed off the field. We worked our way down and around the two obvious hernias and as we proceeded to work, we found the 3rd hernia and then what we thought was a 4th hernia about 10 mm in diameter below the umbilicus and on the right. I could feel it posteriorly with the tip of my finger. It took a few minutes to clean off all the surrounding omentum. Fortunately, none of the bowel was adherent to any of this area and we did not have to touch the bowel at all. Once we could visualize the entire area and we were confident we did not find any additional hernias up and down his incision, we decided we would close these primarily without mesh. We used #2 Prolene suture in [id number] fashion with a few additional simple stitches to close these four defects. The 33 mm fascial defect and the 21 mm fascial defects were closed vertically. The 12 mm fascial defect was closed transversely and the 10 mm fascial defect was simply closed with a single [id number] suture. After this, we injected local anesthetic into his abdominal wall and subcutaneous tissues. The wound was irrigated and suctioned out until clear. We brought the dermis back with interrupted 3-0 subcuticular Monocryl sutures. The skin edges were reapproximated with anjel. Dry gauze and tape were then applied. His Medina catheter was removed while he was asleep. He was awakened from his anesthesia, extubated in the OR, and taken to the recovery room in stable condition. Na Tello MD [facility]/MODL /[id number] Electronically Signed By: NA TELLO MD 09/16/22 1235 PATIENT NAME: MOLINA CEE OPERATIVE REPORT DATE OF : 54 REPORT #: [id number] PHYSICIAN: NA TELLO MD PCP: NARENDRA SORENSON MD REPORT IS CONFIDENTIAL AND NOT TO BE RELEASED WITHOUT AUTHORIZATION [address] [place], [place] [address] Signed cc: MD Narendra Mae MD Copies: NA TELLO MD, RUSSEL J MD ~ Electronically Signed By: NA TELLO MD 09/16/22 1235 PATIENT NAME: MOLINA CEE OPERATIVE REPORT DATE OF : 54 REPORT #: [id number] PHYSICIAN: NA TELLO MD PCP: NARENDRA SORENSON MD REPORT IS CONFIDENTIAL AND NOT TO BE RELEASED WITHOUT AUTHORIZATION
--- NOTE | 2022-09-16 13:01 | NUR ---
PT ON 1L OF O2 VIA NC D/T DSAT TO 87-88 DURING SLEEP. O2 REMAINS AT 93% AT THIS TIME VIA PULSE OX. CALL LIGHT WITHIN REACH AT THIS TIME.
--- NOTE | 2022-09-16 13:09 | NUR ---
PT AT 95% ON 1L OF O2 VIA NC. CONT PULSE OX, THIS RN PLACED PT ON RA AT THIS TIME. FOR 30 MINUTES PT O2 >91% DURING SLEEP. FAMILY AT BEDSIDE. CALL LIGHT WITHIN REACH, NO FURTHER NEEDS AT THIS TIME.
--- NOTE | 2022-09-16 13:35 | NUR ---
IN ROOM FOR ASSESSMENT AND VS. VSS. PT 94% ON RA AT THIS TIME. NO ACUTE CHANGES FROM PREVIOUS ASSESSMENT. NO NEW BLEEDING AT MIDLINE INCISION SITE. PT REPORTS PAIN 3/10 AT THIS TIME. ICE PACK AND BRACING PILLOW IN PLACE. PT STATES NO NEED TO URINE VOID AT THIS TIME. LET PT KNOW MUST BE ABLE TO VOID BEFORE DISCHARGE, ICE WATER PROVIDED, PT AND FAMILY STATES VERBAL UNDERSTANDING. CALL LIGHT WITHIN REACH, NO FURTHER NEEDS AT THIS TIME.
--- NOTE | 2022-09-16 14:31 | NUR ---
LE 1420 PATIENT HAS MET DISCHARGE CRITERIA. PATIENT UNDERSTOOD. NO QUESTIONS AT THIS TIME. PATIENT DRESSED SELF AND TOLERATED IT WELL. IV D/C'D WNL.
--- NOTE | 2022-09-16 15:02 | NUR ---
LE 1420 PATIENT WAS WHEELED OUT OF FACILITY TO PRIVATE AUTO. NO FUTHER NEEDS.
== END 2022-09-16 14:20 | disposition home or self-care (01) ==
LOC: DS 07:45
PROVIDERS: ATTEND Colon & Rectal Surgery
PROC: 0WQF0ZZ Repair Abdominal Wall, Open Approach (ICD-10-PCS; principal; 2022-09-16 09:30)
DX: K43.2 Incisional hernia without obstruction or gangrene (principal); I10 Essential (primary) hypertension; E78.5 Hyperlipidemia, unspecified; E03.9 Hypothyroidism, unspecified; E11.9 Type 2 diabetes mellitus without complications; Z79.84 Long term (current) use of oral hypoglycemic drugs; K64.8 Other hemorrhoids; Z86.010 Personal history of colon polyps; E66.9 Obesity, unspecified; Z90.49 Acquired absence of other specified parts of digestive tract; Z85.038 Personal history of other malignant neoplasm of large intestine; K63.5 Polyp of colon; Z68.34 Body mass index [BMI] 34.0-34.9, adult; Z96.653 Presence of artificial knee joint, bilateral
CPT/HCPCS: J0131; J0690; J1100; J1170; J1644; J1885; J2001; J2250; J2405; J2704; J3010; J3475; J7121

== ENCOUNTER 2025-04-18 09:07 | Emergency (ER) | payer MEDICARE, OTHER ==
[~2025-04-18] VITALS: Ht 167.6 cm; Wt 92.6 kg
[~2025-04-18 09:07] MED LIST changes: +CHILDREN'S ASPI81 M1 PO; +PYRIDIUM200 MG PO
[2025-04-18] MEDS ORDERED: CEPHALEXIN MONOHYDRATE 500 MG CAP PO ONE (10:00)
[2025-04-18] MEDS ORDERED: CEPHALEXIN500 M1 PO (10:01)
[2025-04-18 10:48] VITALS: BP 107/66
== END 2025-04-18 10:48 | disposition home or self-care (01) ==
LOC: ED 09:07
DX: B02.8 Zoster with other complications (principal); H00.031 Abscess of right upper eyelid; E11.9 Type 2 diabetes mellitus without complications; Z88.8 Allergy status to other drugs, medicaments and biological substances; Z79.899 Other long term (current) drug therapy
CPT/HCPCS: 99282; A9270

== ENCOUNTER 2025-06-07 07:10 | Emergency (ER) | payer MEDICARE ==
[~2025-06-07] VITALS: Ht 167.6 cm; Wt 90.5 kg
--- OUTSIDE RECORDS SUMMARY | ~2025-06-07 | XMS | Continuity of Care Document ---
Demographics + + + | Address | [address] | | | [place] [address] | + + + | Preferred Language | Unknown | + + + | Marital Status | | + + + | Congregational Affiliation | Unknown | + + + | Race | Unknown | + + + | Ethnic Group | or | + + + Author + + + | Author | [facility] | + + + | Organization | [facility] | + + + | Address | [address] [facility] [address] | | | [place] [address] | + + + | Phone | | + + + Care Team Providers + + + + | Care Tobacco Stripper Hand Name | Role | Phone | + + + + Unavailable | Unavailable | + + + + Unavailable | Unavailable | + + + + Allergies and Intolerances + + + + + + | date | description | facility | reaction | severity | + + + + + + | 2025-04-18 | Metformin | [facility] - | Diarrhea | Moderate | | 00:00 | | [facility] | | | + + + + + + | 2025-04-18 | Metformin | [facility] - | Diarrhea | Moderate | | 00:00 | | [facility] | | | | | | [facility] | | | + + + + + + | 2025-04-18 | Metformin | [facility] - | Diarrhea | Moderate | | 00:00 | | [facility] | | | | | | [facility] | | | + + + + + + Encounters No information. Functional Status No information. Immunizations No information. Medications + + + + | date | description | facility | + + + + | (no date) | Dorzolamide HCl/Timolol | [facility] | | | Maleat | [facility] | + + + + | 2025-04-18 00:00 | CEPHALEXIN | [facility] | | | | [facility] | + + + + | (no date) | | [facility] | | | LISINOPRIL/HYDROCHLOROTHIAZ | [facility] | | | NENO | | + + + + | (no date) | VITAMIN E MIXED | [facility] | | | | [facility] | + + + + | (no date) | Cholecalciferol (Vitamin | [facility] | | | D3) | [facility] | + + + + | (no date) | ATORVASTATIN CALCIUM | [facility] | | | | [facility] | + + + + | (no date) | ASCORBIC ACID | [facility] | | | | [facility] | + + + + | (no date) | Travoprost | [facility] | | | | [facility] | + + + + | (no date) | FERROUS SULFATE | [facility] | | | | [facility] | + + + + | (no date) | Vitamin A | [facility] | | | | [facility] | + + + + | (no date) | ACETAMINOPHEN | [facility] | | | | [facility] | + + + + | (no date) | ASPIRIN | [facility] | | | | [facility] | + + + + | (no date) | LEVOTHYROXINE SODIUM | [facility] | | | | [facility] | + + + + Problems + + + + | date | description | facility | + + + + | 2025-04-18 00:00 | Herpes zoster | [facility] | | | | [facility] | + + + + | 2025-04-18 00:00 | Cellulitis | [facility] | | | | [facility] | + + + + Procedures No information. Results/Labs No information. Social History + + + + | date | description | facility | + + + + | (no date) | Unknown if ever smoked | [facility] | | | | [facility] | + + + + Vital Signs + + + +---------+ | date | measurement | value | units | + + + +---------+ | 2025-04-18 00:00 | BMI | 33.0 | kg/m2 | + + + +---------+ | 2025-04-18 00:00 | BP_diastolic | 66 | mmHg | + + + +---------+ | 2025-04-18 00:00 | BP_systolic | 107 | mmHg | + + + +---------+ | 2025-04-18 00:00 | heart_rate | 63 | /min | + + + +---------+ | 2025-04-18 00:00 | height_metric | 167.64 | cm | + + + +---------+ | 2025-04-18 00:00 | height_standard | 66 | in | + + + +---------+ | 2025-04-18 00:00 | o2_saturation | 95 | % | + + + +---------+ | 2025-04-18 00:00 | respiration_rate | 15 | /min | + + + +---------+ | 2025-04-18 00:00 | | 97.6 | F | | | temperature_standar | | | | | d | | | + + + +---------+ | 2025-04-18 00:00 | weight_metric | 92.601 | kg | + + + +---------+ | 2025-04-18 00:00 | weight_standard | 204.150 | lb | + + + +---------+"
[~2025-06-07 07:10] MED LIST changes: +CEPHALEXIN500 M1 PO
[2025-06-07] MEDS ORDERED: METFORMIN HCL500 M1 PO (07:27)
[2025-06-07] MEDS ORDERED: HYDROmorphone HCL 1 MG/ML SYR IV PRN (07:45)
[2025-06-07] MEDS ORDERED: SODIUM CHLORIDE 0.9% 1,000 ML IV ONE (07:45)
[2025-06-07 07:48] LABS: BASOPHILS 0.5 % (0.2-1.2); EOSINOPHILS 0.7 % (0.8-7.0); LYMPHOCYTES 35.5 % (21.8-53.1); MCH 30.8 PG (25.7-32.2); MCHC 33.6 g/dL (32.3-36.5); MCV 91.4 fL (79.0-92.2); MONOCYTES 6.8 % (5.3-12.2); NEUTROPHILS 56.4 % (34.0-67.9); RBC 4.91 M/uL (4.63-6.08)
[2025-06-07 08:10] LABS: ALT (SGPT) 87.0 U/L (14-59); AST (SGOT) 55.0 U/L (15-37); GLOMERULAR FILTRATION RATE,EST 95.0 mL/min (>60); PROTEIN, TOTAL 7.6 g/dL (6.4-8.2); UREA NITROGEN 17.0 mg/dL (7-18)
[2025-06-07 09:37] LABS: INR 1.06 (0.80-1.30); PROTIME 13.1 Sec (11.2-14.2)
[2025-06-07] MEDS ORDERED: HYDROCODON-ACE1 EA10 PO (10:36)
[2025-06-07] MEDS ORDERED: AMOX TR-K CLV1 EAC1 PO (10:36)
[2025-06-07] MEDS ORDERED: HYDROCODONE/ACETA 5/325 TAB PO ONE (11:00)
[2025-06-07] MEDS ORDERED: AMOXICILLIN/CLAVULANATE K 875 MG TAB PO ONE (11:00)
[2025-06-07 11:05] VITALS: BP 122/77
== END 2025-06-07 11:06 | disposition home or self-care (01) ==
LOC: ED 07:10
PROVIDERS: Emergency Medicine
DX: K80.20 Calculus of gallbladder without cholecystitis without obstruction (principal); E11.9 Type 2 diabetes mellitus without complications; I10 Essential (primary) hypertension; Z79.82 Long term (current) use of aspirin; Z79.899 Other long term (current) drug therapy
CPT/HCPCS: 74177; 76705; 80053; 83690; 85025; 85610; 85730; 96374; 96375; 99284-25; J1171; J2405; J7030; Q9967